=== PATIENT | female | born 1985 | race Hispanic/Latino ===

== ENCOUNTER → 2017-09-15 16:05 | Outpatient (CLI) | payer MEDICAID, SELFPAY ==
[2017-09-21 13:04] LABS: HPV Reflexed? NOT INDICATED
== END ==
PROVIDERS: Family Provider Family Medicine; PCP Family Medicine; Visit Provider Obstetrics & Gynecology
DX: Z12.4 Encounter for screening for malignant neoplasm of cervix (principal)
CPT/HCPCS: 88175; G0145

== ENCOUNTER → 2017-12-26 09:04 | Outpatient (CLI) | payer MEDICAID, SELFPAY ==
[2017-12-26 09:24] LABS: Absolute Lymphocyte Count 2.47 X10^3/ul (0.83-4.51); Absolute Neutrophil Count 3.5 X10^3/uL (2.0-7.7); Basophil# 0.02 X10^3/uL; Basophil% 0.3 % (0-1); Eosinophil# 0.25 X10^3/uL; Eosinophils% 3.8 % (0-5); Hematocrit 37.8 % (37-47); Lymphocyte # 2.47 X10^3/ul (4.0); Lymphocyte % 37.3 % (19-41); Mean Corp Hgb Conc 31.7 g/gl (32-36); Mean Corpuscular Hgb 26.6 pg (27.0-32.0); Mean Corpuscular Volume 83.8 fL (81-99); Mean Platelet Vol. 9.8 fl (6.2-12.0); Monocyte# 0.43 X10^3/uL; Monocyte% 6.5 % (0-10); Neutrophil # 3.45 X10^3/uL (2.7-7.7); Neutrophil % 52.1 % (47-70); Platelet Count 272 K/mm3 (150-450); RBC Distribution Width CV 14.3 % (11.6-14.6); RBC Distribution Width SD 43.7 fl (35.1-43.9); Red Blood Count 4.51 M/mm3 (4.2-5.4); White Blood Count 6.6 K/mm3 (4.4-11.0)
[2017-12-26 09:27] LABS: Internal QC Validated? YES +Cl - CLEAR BKGD; POSITIVE COUNT NO; POSITIVE DIFFERENTIAL NO; POSITIVE MORPHOLOGY NO; Pregnancy, Urine Negative Negative
[2017-12-26 09:37] LABS: Anion Gap 5 (5-15); BUN 9 mg/dL (7-18); BUN/Creat Ratio 16.4 RATIO (10-20); Calcium,Total 8.2 mg/dL (8.5-10.1); Chloride 105 mmol/L (98-107); Creatinine, Serum 0.55 mg/dL (0.55-1.02); EST Glomerular Filtration Rate 137 mL/min (>60); Est Glom Filt Rate - Afr Amer 166 mL/min (>60); Glucose 82 mg/dL (74-106); Potassium 3.8 mmol/L (3.5-5.1); Sodium Level 139 mmol/L (136-145)
[2017-12-26 17:12] VITALS: BP 109/68; BP 117/65; BP 125/74
--- NOTE | 2017-12-26 17:12 | TILTTABLE_ITS ---
- Staff Staff: Bushra Thompson, - - Lida Quiñonez - Summary Pre Test Resting HR: 83 - Alert and oriented: Warm and dry Pre Test Resting BP: 117/65 - Alert and oriented: Warm and dry Minimum Test HR: 84 - Alert and oriented: Warm and dry Maximum Test HR: 104 - Alert and oriented: Warm and dry Minimum Test BP: 109/68 - Alert and oriented: Warm and dry Maximum Test BP: 125/74 - Alert and oriented: Warm and dry Reason for Test Termination: Reached Maximum Test Time Physician Tilt Table Report - Patient's Physicians Primary Care Physician: Steffany Garner [employer] Tm1 Developer: Stas Bernard Indications/Diagnosis: Dizziness/lightheadedness Syncope Procedure Comments: Patient was brought to the tilt table laboratory and laid supine on the tilt table. The patient was alert and oriented and warm and dry. The baseline heart rate was 83 bpm with a baseline blood pressure of 117/65 mmHg. The cardiac rhythm was normal sinus rhythm. The patient was placed in the 70? upright tilt table position for approximately 30 minutes. The patient remained alert and oriented and warm and dry. The minimal heart rate was 84 bpm with a minimal blood pressure of 109/68 mmHg and a maximal heart rate of 104 bpm with a maximal blood pressure 125/74 mmHg. The cardiac rhythm remained sinus rhythm. The patient did not lose consciousness. The patient complained of a variety of symptoms including mild headache, a little dizzy, cold in the right shoulder, feels like the table is moving, with subsequent resolution of symptoms after being returned to the supine position. The patient was returned to the supine position. The patient remained alert and oriented and warm and dry. The concluding heart rate was 99 bpm with a concluding blood pressure 119/75 mmHg. The cardiac rhythm remained sinus rhythm. The patient was taking oral intake well. Summary: 70? upright tilt table study considered negative for reproducible vasovagal/ neurocardiogenic syncope.
== END ==
PROVIDERS: Family Provider Family Medicine; PCP Family Medicine; Visit Provider Psychiatry & Neurology Neurology
DX: R55 Syncope and collapse (principal)
CPT/HCPCS: 36415; 80048; 81025; 85025; 93660; J7030; A4216

== ENCOUNTER → 2018-08-09 17:17 | Outpatient (CLI) | payer MEDICAID, SELFPAY | PROVIDERS: Family Provider Family Medicine; PCP Family Medicine; Referring Provider Obstetrics & Gynecology; Visit Provider Obstetrics & Gynecology | DX: N39.0 Urinary tract infection, site not specified (principal) | CPT/HCPCS: 87086; 87088 ==

== ENCOUNTER → 2018-09-18 17:50 | Outpatient (CLI) | payer MEDICAID, SELFPAY ==
[2017-07-25 11:48] VITALS: BMI 39.2
[2018-09-24 12:11] LABS: HPV Reflexed? NOT INDICATED
== END ==
PROVIDERS: Family Provider Family Medicine; PCP Family Medicine; Referring Provider Obstetrics & Gynecology; Visit Provider Obstetrics & Gynecology
DX: Z12.4 Encounter for screening for malignant neoplasm of cervix (principal)
CPT/HCPCS: 88175; G0145

== ENCOUNTER → 2018-10-31 15:33 | Outpatient (CLI) | payer MEDICAID, SELFPAY ==
[2018-10-29 14:01] VITALS: BMI 39.2
--- NOTE | 2018-10-31 15:40 | US_ITS ---
STUDY: ULTRASOUND BREAST - LEFT REASON FOR EXAM: Female, 32 years old. Palpable lump left breast. The patient is presently nursing. TECHNIQUE: Axial and longitudinal images of the LEFT breast were performed with a high resolution ultrasound transducer. COMPARISON: None. FINDINGS: LEFT Breast: There is a 1.1 cm x 1.2 cm x 0.7 cm cyst at the 9:00 position of the breast adjacent to the nipple. US/Breast Limited Unilateral IMPRESSION: The palpable abnormality corresponds to a 1.1 cm x 1.2 cm x 0.7 cm cyst at the 9:00 position of the breast adjacent to the nipple. ASSESSMENT CATEGORY: BIRADS Category 2: Benign. A letter regarding these results will be sent to the patient by the facility within 30 days. Electronically Signed: Tim Conteh, at 8:01 EDT , Service support ,
== END ==
PROVIDERS: Family Provider Family Medicine; PCP Nurse Practitioner Family; Referring Provider Surgery; Visit Provider Surgery
DX: N63.20 Unspecified lump in the left breast, unspecified quadrant (principal)
CPT/HCPCS: 76642

== ENCOUNTER → 2018-11-05 16:53 | Outpatient (CLI) | payer MEDICAID, SELFPAY ==
--- NOTE | 2018-11-05 14:20 | BRBX_PTH ---
PATIENT: TOSHIA MELVIN LOC: [facility] #:[id number] AGE/SX: 39/F ROOM: RE11/05/[address]: Dr. Yann Keen MD : 1985 BED: DIS: SPEC #: [id number] RECD: 11/05/18 16:53 STATUS: MARY ANNE BRANDEN #: [id number] TONY: 11/05/18 14:[address]: Yann Keen DEPT: SURGICAL PATHOLOGY RECD BY: Xiomara Arzola Tissues: Left breast, NOS Procedures: Surgery Specimen Level IV HEADER OPERATION: Left breast biopsy PRE-OP DIAGNOSIS: Lump left breast TISSUE SUBMITTED: Left breast tissue MICROSCOPIC DIAGNOSIS Left breast, core biopsy: Benign breast tissue with lactational changes. Negative for atypia or malignancy. SJ:hilda 11/07/18 COMMENT Correlation with clinical findings and appropriate follow up are necessary. MICROSCOPIC DESCRIPTION Slides are reviewed. GROSS DESCRIPTION Received in fixative is one container labeled with the patient's name and designated left breast. The specimen consists of multiple minute fragments of ruffin tissue that in aggregate measure 0.2 x <0.1 x <0.1 cm. The specimen is totally submitted in one cassette. / AM:hilda 11/06/18 TC:5 CPT: 81094
[2018-11-05 14:50] VITALS: BMI 39.2
== END ==
PROVIDERS: Referring Provider Surgery; Visit Provider Surgery
DX: N63.20 Unspecified lump in the left breast, unspecified quadrant (principal)
CPT/HCPCS: 88305

== ENCOUNTER 2020-02-01 17:38 | Emergency (ER) | payer MEDICAID, SELFPAY ==
[2018-11-05 14:50] VITALS: BMI 39.2
[2020-02-01 17:41] VITALS: BP 149/82; PULSE 105; RESP 20; TEMP 37; O2SAT 97; BMI 36.8
--- NOTE | 2020-02-01 18:26 | EKG12_ITS ---
Test Reason : CP Blood Pressure : / mmHG Vent. Rate : 102 BPM Atrial Rate : 102 BPM P-R Int : 180 ms QRS Dur : 090 ms QT Int : 340 ms P-R-T Axes : 052 019 057 degrees QTc Int : 443 ms Sinus tachycardia Nonspecific T wave abnormality Abnormal ECG Confirmed by LULY FUENTES, BENJAMIN ([id number]), photographic editor CHANDU WOODWARD ([id number]) on 02/04/2020 9:28:30 AM Referred By: DENIZ Confirmed By:BENJAMIN MAURICIO MD
--- NOTE | 2020-02-01 18:27 | ED.DCSUM_ITS ---
History of Present Illness Chief Complaint: Chest Pain Informant: Patient Onset: Today Quality: Pressure Location: Left Chest Worsened By: Breathing Relieved By: Nothing Associated Symptoms: Nausea, Cough Narrative: Patient is a 34-year-old female presenting with chest pressure. She states is on the left side of her chest. It started about 30 minutes prior to arrival to the ER. Patient states she was driving home from the park which is been with her children. She states when she takes deep breath because of the pain to be worse. She also feels like she is not taking good breaths. She states she sometimes coughs because of the discomfort in her chest. She not have cough prior to this episode. She has some associated nausea. She denies any radiation of the pain. She states is never had anything like this before. She denies any history of DVT or PE. She has any swelling of her legs. She is not concerned for as she has ParaGard IUD in. She denies any family history of cardiac disease. She denies any fever or chills. No other complaints at this time. Prior Similar Symptoms: No PE Risk Factors: Negative for: Recent Travel/Surgery, Recenet Immobilization, Prior DVT or PE, Cancer, OCP + Smoking + >/=35 Past Medical History - Allergies and Home Meds Allergies/Adverse Reactions: Allergies No Known Allergies Allergy (Verified 11/05/18 14:56) Primary Care Physician: Radha Green NP-C [Primary Care Provider] - Past Medical History: None Surgical History: noncontributory Lives: With Family Smoking Status: Never smoker Review of Systems General: Denies: Chills, Fever, Sweats Eyes: Denies: Visual changes - bilaterally, Diplopia ENT: Denies: Rhinorrhea, Sore throat Cardiovascular: Reports: Chest pain. Denies: Palpitations Respiratory: Reports: Dyspnea, Cough. Denies: Dyspnea on exertion Gastrointestinal: Denies: Abdominal pain, Nausea, Vomiting, Diarrhea, Melena, Hematochezia Genitourinary: Denies: Dysuria, Hematuria, Frequency Musculoskeletal: Denies: Back pain, Extremity Pain Skin: Denies: Rash, Wounds Neurological: Denies: Headache, Weakness, Numbness Physical Exam Vital Signs/Narrative: Vital Signs Temp Pulse Resp BP Pulse Ox 02/01/20 17:41 98.6 F 105 H 20 H 149/82 H 97 Inital Vital Signs reviewed: Yes General: Well nourished, Well developed, No Acute Distress Head: Normocephalic, Atraumatic Eyes: Perrl, EOMI ENT: Moist mucous membranes, No rhinorrhea Neck: Supple, Nontender Cardiovascular: Regular rate, Regular rhythm, No murmurs Respiratory: No distress, CTA bilaterally, Chest nontender. Negative for: Wheezing, Chest tenderness Abdomen: Soft, Nontender, Nondistended, Normal bowel sounds Back: Nontender, Normal Inspection Extremities: Nontender, No edema Skin: Normal color, No rash Neurological: Alert, Oriented x3, Cranial nerves II-XII grossly intact, Normal Strength, Normal Sensation Psychological: Normal affect, Normal Mood Diagnostic/Tx/Re-eval Clinical Impression(s) from Imaging Studies Chest CTA 02/01/20 19:08 IMPRESSION: 1. No evidence of aortic dissection or central pulmonary embolism. Suboptimal evaluation of the peripheral branches. 2. No evidence of infiltrates or pleural effusions. Electronically Signed: Isma Gee MD at 19:51 EDT Tel , Service support , Laboratory Data 02/01/20 02/01/20 02/01/20 18:00 18:00 18:00 WBC 8.9 RBC 4.80 Hgb 10.3 L Hct 35.0 L MCV 72.9 L MCH 21.5 L MCHC 29.4 L RDW Std Deviation 43.8 RDW Coeff of Abhishek 16.9 H Plt Count 418 MPV 10.5 Immature Gran % (Auto) 0.300 Neut % (Auto) 59.6 Lymph % (Auto) 33.5 [place] % (Auto) 5.1 Eos % (Auto) 1.1 Baso % (Auto) 0.4 Absolute Neuts (auto) 5.3 Absolute Lymphs (auto) 2.98 Nucleated RBC % 0 PT 12.0 INR 0.9 D-Dimer Quant (PE/DVT) 0.65 H* Sodium 138 Potassium 3.3 L Chloride 108 H Carbon Dioxide 25.0 Anion Gap 5 BUN 12 Creatinine 0.68 Estim Creat Clear Calc 118.70 Est GFR (MDRD) Af Amer 127 Est GFR (MDRD) Non-Af 105 BUN/Creatinine Ratio 17.6 Glucose 149 H Calcium 8.5 Troponin I < 0.015 - Rhythm Strip Rhythm Strip: Sinus Tach Rate: 102 Ectopy: None - EKG Initial EKG Interpretation: Sinus Tachycardia, - - Tachycardia at a rate of [address] segments Normal intervals Treatment: Aspirin, Toradol IV RUTH Risk: No Positive RUTH Elements Score: 0 - Medical Decision Making Patient evaluated for chest pressure in her left upper chest wall. Patient is initially tachycardic so she cannot be ruled out for PE but she is otherwise low rest. D-dimer is mildly elevated so CTA is obtained. This is negative for any acute process. Patient does not have any acute EKG abnormalities and has a normal troponin. Lab work is otherwise unremarkable. Patient is low risk for ACS. Patient be discharged home to follow-up with her primary care doctor. Just prior to discharge patient does comment that she notices when she is laying down and resting at night her heart rate gets low on her smart watch. She is not particularly symptomatic but tired when this happens. Patient is counseled that she should follow-up with her primary care doctor for all of these complaints. I do think she stable for outpatient follow-up at this time. ED Disposition - Plan for ED Patient: Disposition: Home or Assisted Living Diagnosis: Chest pain of uncertain etiology Instructions: ED Chest Pain Atypical Unkn Cause Referrals: Radha Green NP-C [Primary Care Provider] - Additional Instructions: Your work-up today was normal. You are not having a heart attack you do not have any blood clots in your lungs or signs of pneumonia. The exact cause your symptoms is not clear. I think you are safe to follow-up with your primary care doctor. Please call them on Monday to schedule a follow-up appointment to discuss this episode of chest pain as well as your heart rate being low at night. Alternate Tylenol and ibuprofen as needed for the pain.
[2020-02-01 18:29] VITALS: BP 148/78; PULSE 98; RESP 16; O2SAT 99
[2020-02-01 18:41] LABS: Absolute Lymphocyte Count 2.98 X10^3/uL (0.83-4.51); Absolute Neutrophil Count 5.3 X10^3/uL (2.0-7.7); Basophil# 0.04 X10^3/uL; Basophil% 0.4 % (0-1); Eosinophils% 1.1 % (0-5); Hemoglobin 10.3 g/dL (12.0-15.0); Lymphocyte # 2.98 X10^3/ul (4.0); Lymphocyte % 33.5 % (19-41); Mean Corp Hgb Conc 29.4 g/dL (32-36); Mean Corpuscular Hgb 21.5 pg (27.0-32.0); Mean Corpuscular Volume 72.9 fL (81-99); Mean Platelet Vol. 10.5 fl (6.2-12.0); Monocyte# 0.45 X10^3/uL; Monocyte% 5.1 % (0-10); NRBC Flagged by Analyzer 0 % (0-5); Neutrophil % 59.6 % (47-70); Platelet Count 418 K/mm3 (150-450); RBC Distribution Width CV 16.9 % (11.6-14.6); RBC Distribution Width SD 43.8 fl (35.1-43.9); White Blood Count 8.9 K/mm3 (4.4-11.0)
[2020-02-01] MEDS: Aspirin 81 MG TAB.CHEW 324 MG PO (18:49)
[2020-02-01] MEDS: 0.9% Normal Saline 1,000 ML 1000 ML IV (18:50)
[2020-02-01 18:53] LABS: International Normalized Ratio 0.9
[2020-02-01 18:57] LABS: D-Dimer Quantitative (DVT/PE) 0.65 FEU/ug/m (0.27-0.49)
[2020-02-01 19:01] LABS: Anion Gap 5 (5-15); BUN 12 mg/dL (7-18); BUN/Creat Ratio 17.6 RATIO (10-20); Calcium,Total 8.5 mg/dL (8.5-10.1); Chloride 108 mmol/L (98-107); Creatinine, Serum 0.68 mg/dL (0.55-1.02); EST Glomerular Filtration Rate 105 mL/min (>60); Est Glom Filt Rate - Afr Amer 127 mL/min (>60); Glucose 149 mg/dL (74-106); Potassium 3.3 mmol/L (3.5-5.1); Sodium Level 138 mmol/L (136-145)
--- NOTE | 2020-02-01 19:08 | CT_ITS ---
STUDY: CTA CHEST REASON FOR EXAM: Female, 34 years old. Right-sided chest pain. RADIATION DOSAGE (If Supplied By Facility): CTDIvol = ( 12.69 ) mGy, DLP = ( 460.14 ) mGycm TECHNIQUE: The examination was performed with the intravenous administration of IV 100mL Isovue-370. Post-processing of the angiographic images was performed, with multiplanar reformation and 3D reconstruction. Individualized dose optimization techniques were used for this CT. COMPARISON: None. FINDINGS: Normal enhancement of the main pulmonary artery and right and left pulmonary arteries. There is limited enhancement of the bilateral peripheral pulmonary arteries. There is no demonstrated central pulmonary embolism. Normal thoracic aorta and visualized great vessels. There is no demonstrated aortic dissection. Normal heart and pericardium. Normal mediastinum. Normal hilar regions. Normal visualized trachea and bronchi. The lungs are well expanded. There are no pulmonary infiltrates. There are no pleural effusions. Normal chest wall structures. The osseous structures demonstrate no acute process. There are calcifications in the midthoracic disc spaces. Normal visualized upper abdomen. CT/CTA Chest W/WO Contrast IMPRESSION: 1. No evidence of aortic dissection or central pulmonary embolism. Suboptimal evaluation of the peripheral branches. 2. No evidence of infiltrates or pleural effusions. Electronically Signed: Isma Gee MD at 19:51 EDT Tel , Service support ,
== END 2020-02-01 20:58 | disposition home or self-care (01) ==
PROVIDERS: Emergency Provider Emergency Medicine; PCP Nurse Practitioner Family
DX: R07.9 Chest pain, unspecified (principal)
CPT/HCPCS: 71275; 80048; 84484; 85025; 85379; 85610; 93005; 96360; 96361; 99285; J7030; Q9967; A4216

== ENCOUNTER → 2020-05-19 | Outpatient (CLI) | payer MEDICAID, SELFPAY ==
[2020-05-25 16:13] LABS: HPV Reflexed? NOT INDICATED
== END | disposition home or self-care (01) ==
PROVIDERS: PCP Nurse Practitioner Family; Visit Provider Obstetrics & Gynecology
DX: Z12.4 Encounter for screening for malignant neoplasm of cervix (principal)
CPT/HCPCS: 88175; G0145

== ENCOUNTER 2020-06-23 23:01 | Emergency (ER) | payer MEDICAID, SELFPAY ==
[2020-06-23 23:02] VITALS: BP 148/96; PULSE 89; RESP 16; TEMP 36.4; O2SAT 100; BMI 34.0
--- NOTE | 2020-06-23 23:43 | ED.DCSUM_ITS ---
History of Present Illness Chief Complaint: Abd Pain Informant: Patient Narrative: Stated she started having some epigastric burning after having emesis 3 days ago. Worse today. She has been using 2 doses of Maalox per day. She also used Tylenol. She also used her proton pump inhibitor. She takes this daily for the last 3 months. She had endoscopy 2 weeks ago but does not know the results. She was told she did not have a stomach ulcer however. She has a history of chronic gastric reflux. She stated she also had an ultrasound of her gallbladder that shows gallbladder sludge recently. She has had some chest pain work-ups in the past that have been negative recently as well. She denies any nausea or vomiting or diarrhea. She describes a burning in her epigastric region. She also feels in her back. No history of pancreatitis. She feels it straight through to her back. Current severity is mild in nature. No shortness of breath. No pain in her chest at this time. - Past Medical History (1) Breast mass, left Status: Acute Past Medical History - Allergies and Home Meds Allergies/Adverse Reactions: Allergies naproxen [From Naprosyn] Allergy (Verified 06/23/20 23:03) Upset Stomach Primary Care Physician: Radha Green NP, LEAD MAINTENANCE TECHNICIAN-C [Primary Care Provider] - Prior records reviewed: Yes Past Medical History: - - Problem list, GERD Surgical History: noncontributory Lives: With Family Smoking Status: Never smoker Alcohol: None Drugs: None Review of Systems General: Denies: Chills, Fever, Sweats Eyes: Denies: Visual changes - bilaterally, Diplopia ENT: Denies: Rhinorrhea, Sore throat Cardiovascular: Denies: Chest pain, Palpitations Respiratory: Denies: Dyspnea, Cough, Dyspnea on exertion Gastrointestinal: Reports: Abdominal pain. Denies: Nausea, Vomiting, Diarrhea, Melena, Hematochezia Genitourinary: Denies: Dysuria, Hematuria, Frequency Musculoskeletal: Reports: Back pain. Denies: Extremity Pain Skin: Denies: Rash, Wounds Neurological: Denies: Headache, Weakness, Numbness Physical Exam Vital Signs/Narrative: Vital Signs Temp Pulse Resp BP Pulse Ox 06/23/20 23:02 97.6 F L 89 16 148/96 H 100 General: Well nourished, Well developed, No Acute Distress Head: Normocephalic, Atraumatic Eyes: Perrl, EOMI ENT: Moist mucous membranes, No rhinorrhea Neck: Supple, Nontender Cardiovascular: Regular rate, Regular rhythm, No murmurs Respiratory: No distress, CTA bilaterally, Chest nontender Abdomen: Soft, Nondistended, Normal bowel sounds, Tender - tender epigastric pinpoint without swelling guarding or rebound.. Negative for: Guarding, Rebound tenderness Back: Nontender, Normal Inspection Extremities: Nontender, No edema Skin: Normal color, No rash Neurological: Alert, Oriented x3, Cranial nerves II-XII grossly intact, Normal Strength, Normal Sensation Psychological: Normal affect, Normal Mood Diagnostic/Tx/Re-eval - Medical Decision Making Lab work obtained. Patient given GI cocktail and IV fluids. She felt much better after treatment. Lab work shows normal CBC other than chronic anemia at 9.1. Follow-up with her doctor discuss getting placed on iron for anemia. Electrolytes liver function test lipase normal. Time I do not feel she has a pancreatitis or gallbladder stone causing her symptoms. This appears to be more gastroesophageal reflux related. She will continue her home management and follow-up as an outpatient ED Disposition - Plan for ED Patient: Disposition: Home or Assisted Living Diagnosis: GERD (gastroesophageal reflux disease) Instructions: ED GERD (Adult) Referrals: Radha Green NP, LEAD MAINTENANCE TECHNICIAN-C [Primary Care Provider] -
[2020-06-23] MEDS: Mag Hydrox/Al Hydrox/Simeth 30 ML UDC PO (23:53)
[2020-06-23] MEDS: 0.9% Normal Saline 1,000 ML 1000 ML IV (23:55)
[2020-06-24 00:49] LABS: Absolute Neutrophil Count 4.8 X10^3/uL (2.0-7.7); Basophil# 0.04 X10^3/uL; Basophil% 0.5 % (0-1); Eosinophil# 0.26 X10^3/uL; Hematocrit 30.2 % (37-47); Hemoglobin 9.1 g/dL (12.0-15.0); Lymphocyte % 35.7 % (19-41); Mean Corp Hgb Conc 30.1 g/dL (32-36); Mean Corpuscular Hgb 21.8 pg (27.0-32.0); Mean Corpuscular Volume 72.4 fL (81-99); Mean Platelet Vol. 10.6 fl (6.2-12.0); Monocyte# 0.47 X10^3/uL; Monocyte% 5.4 % (0-10); NRBC Flagged by Analyzer 0 % (0-5); Neutrophil # 4.79 X10^3/uL (2.7-7.7); Neutrophil % 55.1 % (47-70); Platelet Count 349 K/mm3 (150-450); RBC Distribution Width CV 17.6 % (11.6-14.6); RBC Distribution Width SD 45.4 fl (35.1-43.9); Red Blood Count 4.17 M/mm3 (4.2-5.4); White Blood Count 8.7 K/mm3 (4.4-11.0)
[2020-06-24 00:55] LABS: Internal QC Validated? YES +Cl - CLEAR BKGD; Pregnancy, Serum, hCG Quali. NEGATIVE Negative
[2020-06-24 01:02] LABS: AST(SGOT) 7 U/L (15-37); Alanine Aminotransfer ALT/SGPT 19 U/L (13-56); Albumin, Serum 3.5 g/dL (3.2-5.0); Alkaline Phosphatase 75 U/L (45-117); Anion Gap 5 (5-15); BUN 11 mg/dL (7-18); BUN/Creat Ratio 19.2 RATIO (10-20); Calcium,Total 8.6 mg/dL (8.5-10.1); Chloride 107 mmol/L (98-107); Creatinine, Serum 0.57 mg/dL (0.55-1.02); EST Glomerular Filtration Rate 128 mL/min (>60); Est Glom Filt Rate - Afr Amer 155 mL/min (>60); Estimated Creatinine Clearance 141.61 ml/min; Globulin 3.4 g/dL (2.2-4.2); Glucose 87 mg/dL (74-106); Lipase 120 U/L (73-393); Potassium 3.6 mmol/L (3.5-5.1); Protein, Total 6.9 g/dL (6.4-8.2); Sodium Level 141 mmol/L (136-145)
[2020-06-24 01:27] VITALS: BP 135/76; PULSE 80; RESP 15; O2SAT 97
== END 2020-06-24 01:27 | disposition home or self-care (01) ==
PROVIDERS: Emergency Provider Emergency Medicine; PCP Nurse Practitioner Family
DX: K21.9 Gastro-esophageal reflux disease without esophagitis (principal); D64.9 Anemia, unspecified
CPT/HCPCS: 36415; 80053; 83690; 84703; 85025; 96360; 99284; J7030; A4216

== ENCOUNTER → 2020-06-29 | Outpatient (CLI) | payer MEDICAID, SELFPAY ==
[2020-06-23 23:02] VITALS: BMI 34.0
[2020-07-01 03:07] LABS: Chlamydia By Nucleic Acid AMP Negative (Negative)
[2020-07-01 06:30] LABS: Gonococcus By Nucleic Acid AMP Negative (Negative)
== END | disposition home or self-care (01) ==
LOC: LABSPEC 13:40
PROVIDERS: PCP Nurse Practitioner Family; Visit Provider Obstetrics & Gynecology
DX: Z11.3 Encounter for screening for infections with a predominantly sexual mode of transmission (principal)
CPT/HCPCS: 87491; 87591

== ENCOUNTER 2020-08-27 16:19 | Emergency (ER) | payer MEDICAID, SELFPAY ==
[2020-08-27 16:20] VITALS: BP 152/93; PULSE 107; RESP 16; TEMP 36.8; O2SAT 98; BMI 34.0
--- NOTE | 2020-08-27 17:49 | EKG12_ITS ---
Test Reason : NAUSEA AND V Blood Pressure : / mmHG Vent. Rate : 102 BPM Atrial Rate : 102 BPM P-R Int : 166 ms QRS Dur : 084 ms QT Int : 336 ms P-R-T Axes : 042 024 040 degrees QTc Int : 437 ms Poor data quality, interpretation may be adversely affected Sinus tachycardia Otherwise normal ECG Confirmed by ISADORA FUENTES, EDITH ([id number]), associate entertainment editor CHANDU WOODWARD ([id number]) on 08/31/2020 12:31:49 P M Referred By: SEEMA Confirmed By:BRODIE MUIR MD
--- NOTE | 2020-08-27 17:55 | ED.DCSUM_ITS ---
History of Present Illness Chief Complaint: Nausea/Vomiting Informant: Patient Narrative: 34-year-old female presenting with multiple symptoms. She states that she has been having ringing in her ears, left-sided headache, tingling in her hands and feet since starting up urinate 3 days ago. Patient states that she has migraines and she is scheduled for an MRI next month. Patient also states that she has been having abdominal pain and points to the right upper quadrant. She denies any is worse with food. Its intermittent and dull pain. She is not vomiting. She denies urinary complaints. She not had fever, chills. No constipation or diarrhea. Past Medical History - Allergies and Home Meds Allergies/Adverse Reactions: Allergies naproxen [From Naprosyn] Allergy (Verified 08/27/20 16:20) Upset Stomach Primary Care Physician: Radha Green RESOURCE ROOM SPECIAL EDUCATION TEACHER, RESOURCE ROOM SPECIAL EDUCATION TEACHER-C [Primary Care Provider] - Past Medical History: - - Migraine headaches, rapid heart rate, GERD Surgical History: noncontributory Lives: Spouse/ Significant Other Smoking Status: Never smoker Alcohol: None Drugs: None Review of Systems General: Denies: Chills, Fever Eyes: Denies: Visual changes - bilaterally, Diplopia ENT: Reports: - - Intermittent tinnitus Cardiovascular: Denies: Chest pain, Palpitations Respiratory: Denies: Dyspnea, Cough Gastrointestinal: Reports: Abdominal pain, Nausea. Denies: Diarrhea, Constipation Genitourinary: Denies: Dysuria, Hematuria Musculoskeletal: Denies: Myalgias, Arthralgias Skin: Denies: Rash, Abscess Neurological: Reports: Headache - Left-sided, Parasthesia - Lateral hands and feet Psych: Denies: Depression, Anxiety Physical Exam Vital Signs/Narrative: Vital Signs Temp Pulse Resp BP Pulse Ox 08/27/20 16:20 98.2 F 107 H 16 152/93 H 98 Inital Vital Signs reviewed: Yes Head: Normocephalic, Atraumatic Eyes: Perrl, EOMI ENT: Moist mucous membranes, No rhinorrhea Cardiovascular: Regular rate, Regular rhythm Respiratory: No distress, CTA bilaterally Abdomen: Soft, Nondistended, Tender - Tenderness in the epigastrium and right upper quadrant. Abdomen nonperitoneal. Extremities: Nontender, No edema Skin: Normal color, No rash Neurological: Alert, Oriented x3, Cranial nerves II-XII grossly intact Psychological: Normal affect, Normal Mood Diagnostic/Tx/Re-eval Clinical Impression(s) from Imaging Studies Abdomen Ultrasound 08/27/20 17:55 IMPRESSION: Normal right upper quadrant ultrasound examination. Electronically Signed: Samina Dugan MD at 20:27 EST Tel , Service support , Brain CT 08/27/20 19:31 IMPRESSION: Normal unenhanced CT scan of the brain. Electronically Signed: Samina Dugan MD at 19:52 EST Tel , Service support , Laboratory Data 08/27/20 08/27/20 08/27/20 18:27 18:27 18:27 WBC 11.7 H RBC 5.13 Hgb 12.5 Hct 39.7 MCV 77.4 L MCH 24.4 L MCHC 31.5 L RDW Std Deviation 56.2 H RDW Coeff of Abhishek 20.3 H Plt Count 376 MPV 10.4 Immature Gran % (Auto) 0.300 Neut % (Auto) 81.3 H Lymph % (Auto) 14.4 L Day % (Auto) 3.5 Eos % (Auto) 0.2 Baso % (Auto) 0.3 Absolute Neuts (auto) 9.5 H Absolute Lymphs (auto) 1.69 Nucleated RBC % 0 Platelet Estimate ADEQUATE RBC Morphology N CHROM Anisocytosis 1+ Microcytosis 1+ Ovalocytes RARE Sodium 138 Potassium 3.3 L Chloride 107 Carbon Dioxide 26.0 Anion Gap 5 BUN 11 Creatinine 0.79 Estim Creat Clear Calc 102.17 Est GFR (MDRD) Af Amer 108 Est GFR (MDRD) Non-Af 89 BUN/Creatinine Ratio 14.0 Glucose 114 H Calcium 8.8 Total Bilirubin 0.20 AST 9 L ALT 17 Alkaline Phosphatase 82 Troponin I < 0.015 Total Protein 7.9 Albumin 3.8 Globulin 4.1 Albumin/Globulin Ratio 0.9 Lipase 126 Serum , Qual NEGATIVE - Rhythm Strip Rhythm Strip: Sinus Rhythm Rate: 102 - EKG Initial EKG Interpretation: No Acute Injury Pattern, Sinus Tachycardia - Medical Decision Making Patient presenting with multiple symptoms of paresthesia in the bilateral hands and feet, nausea, abdominal pain in the right upper quadrant. She states that her symptoms really began after starting taking topiramate. Patient had EKG interpreted by myself which shows a sinus rhythm without dysrhythmia or ischemic change. Opponent is negative. CT of the brain which showed no acute process. Patient had a normal right upper quadrant ultrasound. Lab work was within normal limits exception of a slight leukocytosis of just over 11,000 and her potassium was slightly low at 3.3 however I did not replace this orally due to her nausea. I think that her symptoms are likely due to medication side effect and she was counseled to follow-up with her doctor that prescribes it to see about changing it. I do not believe that her symptoms represent strokelike symptoms. She was given Zofran for home. She was given return precautions. Impression: 1. Abdominal pain 2. Nausea 3. Paresthesias bilateral hands and feet ED Disposition - Plan for ED Patient: Disposition: Home or Assisted Living Instructions: ED Vomiting (Adult) Prescriptions: Ondansetron [Zofran Odt] 4 mg PO Q8H PRN PRN #10 tab PRN Reason: Nausea Transmission Status: Received by [id number] Referrals: Radha Green NP, RESOURCE ROOM SPECIAL EDUCATION TEACHER-C [Primary Care Provider] - Additional Instructions: I think you are probably having side effects to your new medication. You should discuss this with the physician who prescribes this to determine if you can change your medication or discontinue.
--- NOTE | 2020-08-27 17:55 | US_ITS ---
STUDY: ABDOMINAL ULTRASOUND - RIGHT UPPER QUADRANT REASON FOR VISIT: Female, 34 years old RUQ PAIN TECHNIQUE: Ultrasound evaluation of the right upper quadrant was performed with real-time and static bates-scale imaging. TECHNICAL QUALITY: Adequate. COMPARISON: None. FINDINGS: Liver: The liver measures 14.9 cm. There is normal echogenicity of the liver. The bile ducts are within normal limits. There is hepatic color flow. The direction of portal flow is hepatopetal. There is no demonstrated mass lesion. Gallbladder: Normal distended gallbladder. The gallbladder wall measures 3 mm. There is a negative sonographic Harvey''s sign. There is no pericholecystic fluid. There are no gallstones. Common Bile Duct (C.B.D.): The common bile duct measures 4 mm. Pancreas: Normal size of the head, body and tail of the pancreas. There is normal echogenicity of the pancreas. There is no demonstrated pancreatic mass or cyst. Right Kidney: Normal size of the right kidney. The right kidney measures 11.8 x 5 x 6.2 cm. Normal renal cortex. The right cortex measures 1.7 cm. There is no demonstrated renal mass or cyst. There is no right hydronephrosis. US/Abdomen Limited IMPRESSION: Normal right upper quadrant ultrasound examination. Electronically Signed: Samina Dugan MD at 20:27 EST Tel , Service support ,
[2020-08-27 18:42] LABS: Absolute Lymphocyte Count 1.69 X10^3/uL (0.83-4.51); Absolute Neutrophil Count 9.5 X10^3/uL (2.0-7.7); Basophil# 0.04 X10^3/uL; Basophil% 0.3 % (0-1); Eosinophil# 0.02 X10^3/uL; Eosinophils% 0.2 % (0-5); Hematocrit 39.7 % (37-47); Hemoglobin 12.5 g/dL (12.0-15.0); Lymphocyte # 1.69 X10^3/ul (4.0); Lymphocyte % 14.4 % (19-41); Mean Corp Hgb Conc 31.5 g/dL (32-36); Mean Corpuscular Hgb 24.4 pg (27.0-32.0); Mean Corpuscular Volume 77.4 fL (81-99); Mean Platelet Vol. 10.4 fl (6.2-12.0); Monocyte# 0.41 X10^3/uL; Monocyte% 3.5 % (0-10); NRBC Flagged by Analyzer 0 % (0-5); Neutrophil # 9.51 X10^3/uL (2.7-7.7); Neutrophil % 81.3 % (47-70); POSITIVE MORPHOLOGY YES; Platelet Count 376 K/mm3 (150-450); RBC Distribution Width CV 20.3 % (11.6-14.6); RBC Distribution Width SD 56.2 fl (35.1-43.9); Red Blood Count 5.13 M/mm3 (4.2-5.4); White Blood Count 11.7 K/mm3 (4.4-11.0)
[2020-08-27 18:55] LABS: Differential Indicated SCAN CRITERIA MET
[2020-08-27] MEDS: Ondansetron 4 MG/2 ML Vial IM (18:56)
[2020-08-27 18:59] LABS: Internal QC Validated? YES +Cl - CLEAR BKGD; Pregnancy, Serum, hCG Quali. NEGATIVE Negative
[2020-08-27 19:04] LABS: ALB/GLOB Ratio 0.9 RATIO (0.9-2.4); AST(SGOT) 9 U/L (15-37); Alanine Aminotransfer ALT/SGPT 17 U/L (13-56); Albumin, Serum 3.8 g/dL (3.2-5.0); Alkaline Phosphatase 82 U/L (45-117); Anion Gap 5 (5-15); BUN 11 mg/dL (7-18); Calcium,Total 8.8 mg/dL (8.5-10.1); Chloride 107 mmol/L (98-107); Creatinine, Serum 0.79 mg/dL (0.55-1.02); EST Glomerular Filtration Rate 89 mL/min (>60); Est Glom Filt Rate - Afr Amer 108 mL/min (>60); Estimated Creatinine Clearance 102.17 ml/min; Globulin 4.1 g/dL (2.2-4.2); Glucose 114 mg/dL (74-106); Lipase 126 U/L (73-393); Potassium 3.3 mmol/L (3.5-5.1); Protein, Total 7.9 g/dL (6.4-8.2); Sodium Level 138 mmol/L (136-145)
[2020-08-27 19:20] LABS: Platelet Estimate ADEQUATE (ADEQ)
[2020-08-27 19:21] LABS: Anisocytosis 1+; Microcytosis 1+; Ovalocyte RARE; Red Cell Morphology N CHROM NORMAL (NORM C&C)
--- NOTE | 2020-08-27 19:31 | CT_ITS ---
STUDY: CT BRAIN WITHOUT CONTRAST REASON FOR EXAM: Female, 34 years old. n/v with headache and ear ringing RADIATION DOSAGE (If Supplied By Facility): CTDIvol = ( 44.99 ) mGy, DLP = ( 762.36 ) mGycm TECHNIQUE: Transaxial CT imaging of the brain was performed without administration of intravenous contrast material. Individualized dose optimization techniques were used for this CT. COMPARISON: No relevant priors. FINDINGS: Normal soft tissue structures. Normal calvarium. Normal size ventricles and extra-axial spaces for the patient''s age. Normal white matter tracts of the cerebral hemispheres. Normal basal ganglia and thalami. Normal brainstem. Normal cerebellum. There is no intracranial hemorrhage. There are no findings of an acute ischemic infarction. Normal visualized paranasal sinuses. CT/Brain/Head without Contrast IMPRESSION: Normal unenhanced CT scan of the brain. Electronically Signed: Samina Dugan MD at 19:52 EST Tel , Service support ,
[2020-08-27] MEDS: Acetaminophen 500 MG Tablet 1000 MG PO (21:04)
== END 2020-08-27 21:11 | disposition home or self-care (01) ==
PROVIDERS: Emergency Provider Student in an Organized Health Care Education/Training Program; PCP Nurse Practitioner Family
DX: R11.2 Nausea with vomiting, unspecified (principal); R10.13 Epigastric pain; R10.11 Right upper quadrant pain; R20.2 Paresthesia of skin; K21.9 Gastro-esophageal reflux disease without esophagitis
CPT/HCPCS: 70450; 76705; 80053; 83690; 84484; 84703; 85025; 93005; 96360; 96372; 99284; J7040; J2405

== ENCOUNTER → 2021-01-21 13:26 | Outpatient (CLI) | payer MEDICAID, SELFPAY ==
--- NOTE | 2021-01-21 13:38 | MRI_ITS ---
STUDY: MRI BRAIN WITHOUT CONTRAST REASON FOR EXAM: Female, 35 years old. TENSION HEADACHES TECHNIQUE: Standardized multiplanar fat and water weighted pulse sequences were obtained. COMPARISON: CT 08/27/2020 FINDINGS: Normal size of the ventricles and extra-axial spaces for the patient''s age. Normal white matter tracts of the supratentorial brain. There is no evidence for recent intracranial ischemia or other cause of cytotoxic edema on diffusion weighted imaging (DWI). Normal T2* images of the brain without demonstrated susceptibility artifact. There is no demonstrated hemosiderin stain. Normal bilateral basal ganglia. Normal thalami. There is no extra-axial fluid accumulation. Normal flow voids within the major intracranial circulation suggesting patency by spin echo criteria. Normal sella turcica, pituitary gland, infundibular stalk, optic chiasm and hypothalamus. Normal tectal plate and pineal gland. Normal midbrain, claudia and medulla. Normal cerebellum. Normal basal cisterns. Normal bilateral temporal bones. Normal bilateral internal auditory canals. No demonstrated orbital abnormality, within the constraints of a routine brain study. Mucosal thickening of the maxillary sinuses consistent with chronic sinusitis. Air-fluid level in the left maxillary sinus consistent with acute sinusitis. Normal calvarium and skull base. Normal visualized soft tissue structures. Normal visualized upper cervical spine. MRI/Brain without Contrast IMPRESSION: Normal unenhanced MRI of the brain. Acute on chronic maxillary sinusitis. Electronically Signed: Hosea Coates MD at 14:47 EDT Tel , Service support ,
== END ==
PROVIDERS: PCP Nurse Practitioner Family
DX: G44.221 Chronic tension-type headache, intractable (principal)
CPT/HCPCS: 70551

== ENCOUNTER → 2021-01-27 13:42 | Outpatient (CLI) | payer MEDICAID, SELFPAY ==
[2021-01-27 15:05] LABS: Hematocrit 42.5 % (37-47); Hemoglobin 12.9 g/dL (12.0-15.0); Mean Corp Hgb Conc 30.4 g/dL (32-36); Mean Corpuscular Hgb 25.6 pg (27.0-32.0); Mean Corpuscular Volume 84.3 fL (81-99); Mean Platelet Vol. 10.4 fl (6.2-12.0); Platelet Count 389 K/mm3 (150-450); RBC Distribution Width SD 45.4 fl (35.1-43.9); Red Blood Count 5.04 M/mm3 (4.2-5.4); White Blood Count 9.1 K/mm3 (4.4-11.0)
== END ==
PROVIDERS: PCP Nurse Practitioner Family; Visit Provider Obstetrics & Gynecology
DX: N92.1 Excessive and frequent menstruation with irregular cycle (principal); N93.0 Postcoital and contact bleeding; N77.1 Vaginitis, vulvitis and vulvovaginitis in diseases classified elsewhere
CPT/HCPCS: 36415; 85027

== ENCOUNTER 2021-07-23 07:15 | Outpatient (CLI) | payer MEDICAID, SELFPAY ==
--- NOTE | 2021-07-23 07:17 | CT_ITS ---
STUDY: CT MAXILLOFACIAL SINUSES REASON FOR EXAM: Female, 35 years old. CHRONIC SINUSITIS RADIATION DOSAGE (If Supplied By Facility): CTDIvol = ( 3306 ) mGy, DLP = ( 842.11 ) mGycm TECHNIQUE: The patient was scanned in a multi detector CT scanner. High resolution axial imaging was performed without the administration of intravenous contrast material. Sagittal and coronal images were reconstructed. Individualized dose optimization techniques were used for this CT. COMPARISON: None. FINDINGS: FRONTAL SINUSES: Normal aeration, without mucosal inflammatory disease. ETHMOIDAL SINUSES: Mucosal thickening of multiple ethmoid air cells consistent with chronic sinusitis. MAXILLARY SINUSES: Mucosal thickening of the floor the right maxillary sinus consistent with chronic sinusitis. SPHENOIDAL SINUSES: Normal aeration, without mucosal inflammatory disease. There is patency of the bilateral maxillary infundibuli with normal uncinate processes, ethmoid bullae, and hiatus semilunaris. Normal bilateral middle turbinates. Normal bilateral inferior turbinates. Normal midline nasal septum. There is patency of the bilateral nasal airways. The visualized osseous structures are normal. The visualized bilateral orbital contents are normal. CT/Sinus/Facial Bone IMPRESSION: Mild chronic right maxillary and ethmoid sinusitis. Electronically Signed: Hosea Coates MD at 9:13 EST Tel , Service support ,
== END 2021-07-23 23:59 | disposition short-term general hospital (02) ==
LOC: CT 07:16
PROVIDERS: PCP Nurse Practitioner Family; Referring Provider Otolaryngology; Visit Provider Otolaryngology
DX: J32.0 Chronic maxillary sinusitis (principal); J32.2 Chronic ethmoidal sinusitis
CPT/HCPCS: 70486

== ENCOUNTER → 2021-11-12 | Outpatient (CLI) | payer MEDICAID, SELFPAY ==
--- NOTE | 2021-11-12 09:58 | PFTCOMP ---
COMPLETE PULMONARY FUNCTION TEST INTERPRETATION Brief HPI: Patient is a 35 year old female, currently under the care of Dr. Denny, who presents to [facility] for complete pulmonary function tests secondary to diagnosis of chronic cough. Respiratory therapist reports good effort and reproducible results. Interpretation: Forced expiration spirometry shows no large airways obstructive ventilatory defect with an FEV1 of 111% predicted. There is no significant bronchodilator response by strict ATS criteria. Spirograms are of good quality and plateau normally. The respiratory flow volume loop shows a normal pattern. Lung volumes by body plethysmography show a normal total lung capacity at 5.61 L, 95% predicted. All other lung volumes are within normal limits. Diffusion capacity by carbon monoxide is normal at 97% predicted. The airway resistance is normal. No previous pulmonary function tests were available for review. Impression: These pulmonary function tests are within normal limits
== END | disposition home or self-care (01) ==
LOC: PSN 07:13
PROVIDERS: PCP Internal Medicine Infectious Disease; Referring Provider Internal Medicine Critical Care Medicine; Visit Provider Internal Medicine Critical Care Medicine
DX: R05.3 Chronic cough (principal)
CPT/HCPCS: 94060; 94726; 94729

== ENCOUNTER → 2021-12-29 | Outpatient (CLI) | payer MEDICAID, SELFPAY ==
[2022-01-01 20:48] LABS: HPV Reflexed? NOT INDICATED
== END | disposition home or self-care (01) ==
LOC: LABSPEC 12:18
PROVIDERS: PCP Internal Medicine Infectious Disease; Visit Provider Obstetrics & Gynecology
DX: Z12.4 Encounter for screening for malignant neoplasm of cervix (principal)
CPT/HCPCS: 88175; G0145

== ENCOUNTER 2022-03-27 12:03 | Emergency (ER) | payer MEDICAID, SELFPAY ==
[2022-03-27 12:04] VITALS: BP 146/86; PULSE 80; RESP 14; TEMP 36.3; O2SAT 100; BMI 34.9
[2022-03-27 13:18] VITALS: BP 128/72
--- NOTE | 2022-03-27 13:19 | EKG12_ITS ---
Test Reason : HTN Blood Pressure : / mmHG Vent. Rate : 079 BPM Atrial Rate : 079 BPM P-R Int : 144 ms QRS Dur : 088 ms QT Int : 384 ms P-R-T Axes : 028 026 020 degrees QTc Int : 440 ms Normal sinus rhythm Normal ECG Confirmed by LULY FUENTES, BENJAMIN ([id number]), assistant film editor CHANDU WOODWARD ([id number]) on 03/28/2022 10:23:46 AM Referred By: RU Confirmed By:BENJAMIN MAURICIO MD
--- NOTE | 2022-03-27 13:20 | EDS_ITS ---
HPI History of Present Illness Chief Complaint: Hypertension Detail of Chief Complaint: High blood pressure Informant: patient Narrative Narrative: Patient presents with high blood pressure that started 2 months ago. Patient's been checking her blood pressure at home because sometimes she will feel like she hears her heartbeat in her ear. Patient has been seen by her primary care physician and was told that normally her blood pressure is low and she did not need to be on blood pressure medicine. Patient states that she had been on metoprolol a while back for blood pressure but then she had a bunch of testing and they took her off her medications as at times her heart rate would go low. Patient denies any headache. She denies chest pain. Sometimes she will have some bloating in the upper abdomen and that is relieved with belching. She denies recent illness. She denies fever. [facility] Medical History (Updated 03/27/22 @ 14:[address] Patricia Sage, DO) Abdominal pain, left upper quadrant Acid reflux Acute pharyngitis, unspecified Anxiety Benign essential hypertension with target blood pressure below 140/90 Breast mass, left COVID-19 Fibromyalgia Gallbladder sludge Gastro-esophageal reflux disease without esophagitis Gross hematuria History of back problems Irritable bowel syndrome Left flank pain Left shoulder pain Migraine Moderate episode of recurrent major depressive disorder Muscle weakness of extremity Myalgia Paresthesia Vitamin D deficiency, unspecified Wheezing without diagnosis of asthma Home Medications pantoprazole 40 mg tablet,delayed release 40 mg PO DAILY 09/23/21 [History Last Taken Unknown] vitamin C 500 mg-multivitamin with minerals chewable tablet (Emergen-C) 1 tab PO DAILY 09/23/21 [History Last Taken Unknown] Allergy/AdvReac Type Severity Reaction Status Date / Time naproxen [From Naprosyn] Allergy Upset Verified 03/27/22 12:04 Stomach Family History (Updated 10/01/21 @ 08:03 by Raven Myers) Grandfather Cancer Lung cancer Grandmother Diabetes Aunt Breast cancer Uncle Kidney disease Surgical History History of section Social History (Updated 11/05/18 @ 16:[address] Yann Keen MD) Smoking Status: Never smoker alcohol intake: never substance use type: does not use EXAM Physical Exam Const Vital Signs: 03/27/22 12:04 03/27/22 13:18 Temperature 97.4 F L Temperature Source Temporal Pulse Rate 80 Respiratory Rate 14 Blood Pressure 146/86 H 128/72 H Blood Pressure Mean 106 90 Pulse Ox 100 Oxygen Delivery Method Room Air MDM MDM MDM Narrative Medical decision making narrative: Patient presents for complete concern of elevated blood pressures. Initial blood pressure was 146/86 and without treatment went down to 128/72. Basic work-up including EKG and labs and urinalysis were unremarkable. At this point patient feels like maybe her blood pressure rises related to some GI issues she is been having and she is seeing a product accountant for this. This point I will feel any further treatments indicated. Patient advised to continue follow- up with GI and her primary care physician. Lab Data Attestation: I reviewed the patient's lab results. Labs: Laboratory Results - last 24 hr 03/27/22 03/27/22 03/27/22 13:30 13:35 13:35 WBC 10.7 RBC 5.08 Hgb 13.8 Hct 43.4 MCV 85.4 MCH 27.2 MCHC 31.8 L RDW Std Deviation 42.5 RDW Coeff of Abhishek 13.6 Plt Count 356 MPV 9.8 Sodium 139 Potassium 3.6 Chloride 107 Carbon Dioxide 25.0 Anion Gap 7 BUN 11 Creatinine 0.67 Estim Creat Clear Calc 118.22 Est GFR (MDRD) Af Amer 129 Est GFR (MDRD) Non-Af 107 BUN/Creatinine Ratio 16.5 Glucose 100 Calcium 9.4 Troponin I High Sens 3 Urine Color Yellow Urine Clarity Clear Urine pH 6.5 Ur Specific [place] 1.010 Urine Protein Negative Urine Glucose (UA) Normal Urine Ketones Negative Urine Occult Blood 10 H Urine Nitrite Negative Urine Bilirubin Negative Urine Urobilinogen Normal Ur Leukocyte Esterase Negative Urine RBC 0 SEEN Urine WBC 0 SEEN Ur Squamous Epith Cells 0-5 SEEN Urine Bacteria RARE Urine Mucus 0 SEEN EKG Initial EKG: Attestation: I personally reviewed and interpreted this EKG as follows: Comments: Sinus rhythm with a ventricular rate 79 bpm with no acute ST segment changes Discharge Plan Triage Chief Complaint: Hypertension ED Provider: Patricia Sage Dx/Rx/DC Orders Clinical Impression: Hypertension Instructions: ED Hypertension, To Be Confirmed Prescriptions: No Action Emergen-C 500 mg tablet,chewable 1 tab PO DAILY pantoprazole 40 mg tablet,delayed release (DR/EC) 40 mg PO DAILY Primary Care Provider: Naun Mcdonald Referrals: Naun Mcdonald MD [Primary Care Provider] - 3-5 Days Disposition Disposition: Home, Self Care
[2022-03-27 13:40] LABS: Mucous, Urine 0 SEEN /hpf (<or=2+); Red Blood Cells-Urine 0 SEEN /hpf (0-5); White Blood Cells 0 SEEN /hpf (0-5)
[2022-03-27 13:45] LABS: Hematocrit 43.4 % (37-47); Hemoglobin 13.8 g/dL (12.0-15.0); Mean Corp Hgb Conc 31.8 g/dL (32-36); Mean Corpuscular Hgb 27.2 pg (27.0-32.0); Mean Corpuscular Volume 85.4 fL (81-99); Mean Platelet Vol. 9.8 fl (6.2-12.0); Platelet Count 356 K/mm3 (150-450); RBC Distribution Width CV 13.6 % (11.6-14.6); RBC Distribution Width SD 42.5 fl (35.1-43.9); Red Blood Count 5.08 M/mm3 (4.2-5.4); White Blood Count 10.7 K/mm3 (4.4-11.0)
[2022-03-27 13:46] LABS: Color, Urine Yellow (Yellow); Glucose, Dipstick Normal (Normal); Ketone-Dipstick Negative (Negative); Leukocyte Esterase-Dipstick Negative /ul (Negative); Nitrite-Dipstick Negative (Negative); Occult Blood-Urine 10 /ul (Negative); Protein-Dipstick Negative (Negative); Urine Bilirubin Dipstick Negative (Negative); Urine Clarity Clear (Clear); Urine Urobilinogen Normal (Normal); Urine pH 6.5 (5.0 - 8.0)
[2022-03-27 14:01] LABS: Anion Gap 7 (5-15); BUN 11 mg/dL (7-18); BUN/Creat Ratio 16.5 RATIO (10-20); Calcium,Total 9.4 mg/dL (8.5-10.1); Chloride 107 mmol/L (98-107); Creatinine, Serum 0.67 mg/dL (0.55-1.02); EST Glomerular Filtration Rate 107 mL/min (>60); Est Glom Filt Rate - Afr Amer 129 mL/min (>60); Estimated Creatinine Clearance 118.22 ml/min; Glucose 100 mg/dL (74-106); Potassium 3.6 mmol/L (3.5-5.1); Sodium Level 139 mmol/L (136-145); Troponin-I HS 3 pg/mL (3.0-54.0)
[2022-03-27 14:01] LABS: Bacteria RARE /hpf (None Seen); Squamous Epithelial Cells - UA 0-5 SEEN /hpf (5-10)
== END 2022-03-27 14:30 | disposition home or self-care (01) ==
PROVIDERS: Emergency Provider Emergency Medicine; PCP Internal Medicine Infectious Disease; Visit Provider Emergency Medicine
DX: I10 Essential (primary) hypertension (principal); K21.9 Gastro-esophageal reflux disease without esophagitis; Z79.899 Other long term (current) drug therapy; Z86.16 Personal history of COVID-19
CPT/HCPCS: 80048; 81001; 84484; 85027; 93005; 99284

== ENCOUNTER 2022-04-26 13:44 | Day surgery (SDC) | payer MEDICAID, SELFPAY ==
[2022-04-26] VITALS (7 sets, daily range): BP systolic 106–123; BP diastolic 61–78; PULSE 62–75; RESP 16–18; TEMP 36.1–36.5; O2SAT 97–100; BMI 36.8
--- NOTE | 2022-04-26 14:03 | HP.PCM_ITS ---
History and Physical Date of Admission: 04/26/22 MELITA CANDELARIO, is a 36 F who presents to the office today for Initial consult. Melita established with this clinic 03.10.22 with referral from PCP to establish care for uncontrolled GERD with cough and postnasal drip. Onset approximately 2 years prior with worsening following COVID infection . She was previously established with a operations and maintenance technician who retired; next operations and maintenance technician who referred her to [place] for a surgery which she cannot remember the name of. Protonix 40mg BID has not been controlling symptoms. Underwent PFT with normal results. Reports she has had two EGD and a colonoscopy; none of these records are available at time of presentation. PMH left breast mass; fibromyalgia; migraines; depression. US abd 2.. for RUQ pain with liver measuring 14.9cm with normal echogenicity. Exam without acute or chronic abnormality. ROS Const Constitutional: No other (as above) Exam Const General: cooperative, healthy appearing, comfortable and no acute distress Nutritional Appearance: well nourished Orientation: alert, awake and oriented x3 HENMT Head: normal to inspection Ears: hearing grossly normal bilaterally, external ears normal, TM's normal bilaterally and EAC's normal Nose: external nose normal, nares normal, septum normal and no nasal discharge Face and sinus: normal facial exam, sinuses nontender and face symmetric Mouth: oral mucosae normal, lip normal, tongue normal and moist mucous membranes Throat: posterior oropharynx normal, uvula midline, abnormal tonsil bilaterally erythema (Trace); no exudates and no hypertrophy and no postnasal drainage Eyes General: appearance normal, both eyes and all related structures Neck Neck: normal visual inspection, full ROM, no lymphadenopathy, no meningeal signs and supple Neck mass: No Thyroid: thyroid normal Lymphatic: no lymphadenopathy noted Chest Chest palpation & inspection: normal inspection of the chest Resp Effort & Inspection: normal respiratory effort, able to speak in complete sentences, symmetric chest movement and no cough Auscultation: Bilateral: Clear to Auscultation Cardio Palpation: normal PMI Rate: regular rate Rhythm: regular rhythm Heart Sounds: S1 normal, S2 normal, no gallops, no murmurs and no rubs Pulses: radial pulses present Skin General: no rashes or lesions noted Neuro General: patient alert, patient awake, patient oriented x3 and gait normal Cognition: normal cognition Speech: speech normal Gait: normal gait Motor: muscle tone normal throughout Sensory Exam: no sensory deficits noted Psych Appearance: grossly normal Mental Status: mental status grossly normal Mood: congruent mood Affect: normal affect Speech and Movement: speech and movement normal Attitude: cooperative Thought Process: normal Thought Content: normal Judgment: judgment good Quality Reporting Tobacco Screening ([facility]) Smoking Status: Never smoker Assessment and Plan Assessment and Plan (1) Acid reflux: ?Plan: We will perform to have in order to evaluate her for refractory reflux disease.? The first test will be a gastric emptying study to see if the reason why she cannot have relief from once a day PPI therapy has anything to do with delayed gastric emptying.? Second we will perform an EGD with Leonardo study to determine the pH of the esophagus.? We will also visually assess her hiatal hernia and a Laxed lower esophageal sphincter.? She may also need food allergy testing in the future. ? ? ? Orders: Orders Gastric Emptying Study Today K21.9 - Gastro-esophageal reflux disease without esophagitis ? I have re-examined the patient. There are no clinical changes since date of exam.
[2022-04-26] MEDS: Lactated Ringers 1,000 ML 15 ML IV (14:05)
--- NOTE | 2022-04-26 14:15 | IMM_PTH ---
PATIENT: TOSHIA MELVIN LOC: EN U#:[id number] AGE/SX: 36/F ROOM: RE04/26/[address]: Dr. Joseph Mueller DO : 1985 BED: DIS: 04/26/2022 SPEC #: [id number] RECD: 04/27/22 09:07 STATUS: MARY ANNE REQ #: [id number] TONY: 04/26/22 14:[address]: Joseph Mueller DEPT: IMMUNOHISTOCHEMISTRY RECD BY: Radha Gloria ENTERED: 04/27/22 09:08 SP TYPE: IMMUNO OTHR DR: Dr. Naun Mcdonald MD Tissues: B - Stomach, NOS Procedures: H Pylori (initial) PHYSICIAN & INSTITUTION [place] [id number] SPECIMEN INFORMATION: Tissue Source: B ? Gastric antrum Clinical Info: Acid reflux Specimen Number: [id number] CPT code: 49024 METHODOLOGY: Deparaffinized sections of prefer/formalin-fixed tissue or PAP/DQ stained slides are incubated with monoclonal/polyclonal antibodies/oligonucleotide probes. Localization is made via biotin free immunoperoxidase method. Appropriate controls are performed and reacted as expected. Results on target cell population are indicated in the following table: RESULTS: ANTIBODY / CLONE RESULT Block B H Pylori (polyclonal) negative These tests were developed and their performance characteristics determined by [facility]. They may not have been cleared or approved by the U.S. Food and Drug Administration. The FDA has determined that such clearance or approval is not necessary. The above immunohistochemical/dualISH markers are ordered and reviewed by the Pathologist. INTERPRETATION: B. Gastric antrum, biopsy: Negative for Helicobacter pylori organisms. AM:hilda 04/29/2022
[2022-04-26 14:43] LABS: Internal QC Validated? YES +Cl - CLEAR BKGD
[2022-04-26 14:44] LABS: Pregnancy, Urine Negative Negative
--- NOTE | 2022-04-26 14:45 | EGD_PTH ---
PATIENT: TOSHIA MELVIN LOC: EN U#:[id number] AGE/SX: 36/F ROOM: RE04/26/[address]: Dr. Joseph Mueller DO : 1985 BED: DIS: 04/26/2022 SPEC #: [id number] RECD: 04/26/22 16:25 STATUS: MARY ANNE BRANDEN #: [id number] TONY: 04/26/22 14:[address]: Joseph Mueller DEPT: SURGICAL PATHOLOGY RECD BY: Xiomara Arzola ENTERED: 04/27/22 09:24 SP TYPE: EGD BIOPSY OT DR: Dr. Naun Mcdonald MD Tissues: A - Duodenum, NOS B - Gastric mucous membrane C - Esophagus, NOS Procedures: Special Stain Group II Surgery Specimen Level IV Alcian Blue/PAS (control) HEADER OPERATION: [place] with biopsies [place] [place] PRE[place]OP DIAGNOSIS: Acid reflux TISSUE SUBMITTED: A ? Duodenum biopsy, B ? Gastric antrum biopsy for H. pylori and path, C ? Distal esophagus biopsy MICROSCOPIC DIAGNOSIS A. Duodenum, biopsy: No pathologic change. B. Gastric antrum, biopsy: Chronic gastritis with focal active gastritis. See comment. C. Distal esophagus, biopsy: Gastroesophageal junctional mucosa with chronic inflammation. No evidence of goblet cell metaplasia. See comment. AM:hilda 04/28/2022 COMMENT B. The results of immunohistochemistry for Helicobacter pylori will be reported separately ([id number]). C. Alcian blue/PAS stain with matched control supports the above diagnosis. MICROSCOPIC DESCRIPTION Slides are reviewed. GROSS DESCRIPTION A - Received in fixative is one container labeled with the patient's name and designated duodenum biopsy. The specimen consists of two irregular fragments of light ruffin soft tissue that in aggregate measure 0.6 x 0.3 x 0.1 cm. The specimen is totally submitted in one cassette. B - Received in fixative is one container labeled with the patient's name and designated gastric antrum biopsy. The specimen consists of two irregular fragments of light ruffin soft tissue that in aggregate measure 1 x 0.4 x 0.1 cm. The specimen is totally submitted in one cassette. C - Received in fixative is one container labeled with the patient's name and designated distal esophagus biopsy. The specimen consists of multiple irregular fragments of light ruffin soft tissue that in aggregate measure 1 x 0.3 x 0.1 cm. The specimen is totally submitted in one cassette. / SJ:rg 04/27/2022 TC:3 CPT: 92035 x3, 11464
--- NOTE | 2022-04-26 16:23 | OP.EGD_ITS ---
Patient Name: Melita Jefferson Procedure Date: 04/26/2022 3:52 PM Date of : 1985 Age: 36 Procedure: Upper GI endoscopy Indications: Heartburn, Failure to respond to medical treatment Providers: Joseph Mueller DO Medicines: Monitored Anesthesia Care Patient Profile: This is a 36 year old female. Refer to note in patient chart for documentation of history and physical. Patient has symptoms of chronic dyspepsia and acute heartburn. Complications: No immediate complications. Procedure: Pre-Anesthesia Assessment: - Prior to the procedure, a History and Physical was performed, and patient medications and allergies were reviewed. The patient is competent. The risks and benefits of the procedure and the sedation options and risks were discussed with the patient. All questions were answered and informed consent was obtained. Patient identification and proposed procedure were verified by the physician in the pre-procedure area. Mental Status Examination: alert and oriented. Airway Examination: normal oropharyngeal airway and neck mobility. Respiratory Examination: clear to auscultation. CV Examination: normal. Prophylactic Antibiotics: The patient does not require prophylactic antibiotics. Prior Anticoagulants: The patient has taken no previous anticoagulant or antiplatelet agents. After reviewing the risks and benefits, the patient was deemed in satisfactory condition to undergo the procedure. The anesthesia plan was to use monitored anesthesia care (MAC). Immediately prior to administration of medications, the patient was re-assessed for adequacy to receive sedatives. The heart rate, respiratory rate, oxygen saturations, blood pressure, adequacy of pulmonary ventilation, and response to care were monitored throughout the procedure. The physical status of the patient was re-assessed after the procedure. After obtaining informed consent, the endoscope was passed under direct vision. Throughout the procedure, the patient's blood pressure, pulse, and oxygen saturations were monitored continuously. The gastroscope was introduced through the mouth, and advanced to the second part of duodenum. The upper GI endoscopy was accomplished without difficulty. The patient tolerated the procedure well. Scope In: 4:06:22 PM Scope Out: 4:13:22 PM Total Procedure Duration Time 0 hours 7 minutes 0 seconds Findings: The Z-line was irregular and was found 36 cm from the incisors. Biopsies were taken with a cold forceps for histology. Biopsies were taken with a cold forceps for histology. Verification of patient identification for the specimen was done. Estimated blood loss was minimal. Clear fluid was found in the stomach. Patchy mildly erythematous mucosa without bleeding was found in the gastric antrum. Biopsies were taken with a cold forceps for histology. Verification of patient identification for the specimen was done. Estimated blood loss was minimal. No gross lesions were noted in the second portion of the duodenum. Impression: - Z-line irregular, 36 cm from the incisors. Biopsied. - Clear gastric fluid. - Erythematous mucosa in the antrum. Biopsied. - No gross lesions in the second portion of the duodenum. Recommendation: - Discharge patient to home. - Resume previous diet. - Continue present medications. - Await pathology results. - Gastric emptying study -Sucralfate 1 g p.o. twice daily Procedure Code(s): --- Professional --- 83045, Esophagogastroduodenoscopy, flexible, transoral; with biopsy, single or multiple CPT copyright 2017 [employer]. All rights reserved. The codes documented in this report are preliminary and upon slabber review may be revised to meet current compliance requirements. Joseph Mueller DO 04/26/2022 4:22:54 PM This report has been signed electronically. Number of Addenda: 0 Note Initiated On: 04/26/2022 3:52 PM
--- NOTE | 2022-04-26 16:24 | OP.CCLET_ITS ---
04/26/2022 Naun Mcdonald [address] [id number] Re : Upper GI endoscopy procedure for Melita Jefferson Dear Dr. Mcdonald This procedure was performed on Tuesday, April 26, 2022. My impressions and recommendations are as follows: Impressions : - Z-line irregular, 36 cm from the incisors. Biopsied. - Clear gastric fluid. - Erythematous mucosa in the antrum. Biopsied. - No gross lesions in the second portion of the duodenum. Recommendations : - Discharge patient to home. - Resume previous diet. - Continue present medications. - Await pathology results. - Gastric emptying study -Sucralfate 1 g p.o. twice daily My findings are described in the full procedure note, which is enclosed. If I can be of further assistance, please feel free to contact me at . Sincerely, Joseph Friend, 04/26/2022 4:22:54 PM This report has been signed electronically.
== END 2022-04-26 17:00 | disposition home or self-care (01) ==
LOC: EN 13:49 → AC 13:50
PROVIDERS: Anesthesiology; PCP Internal Medicine Infectious Disease; Referring Provider Internal Medicine Infectious Disease; Visit Provider Internal Medicine Gastroenterology
PROC: 0DJ08ZZ Inspection of Upper Intestinal Tract, Via Natural or Artificial Opening Endoscopic (ICD-10-PCS; CPT 43235; principal; 2022-04-26 14:40)
DX: K21.9 Gastro-esophageal reflux disease without esophagitis (principal); K29.50 Unspecified chronic gastritis without bleeding; K44.9 Diaphragmatic hernia without obstruction or gangrene; Z28.310 Unvaccinated for COVID-19; Z28.9 Immunization not carried out for unspecified reason; Z86.16 Personal history of COVID-19
CPT/HCPCS: 43239; 81025; 88305; 88313; 88342; J7120; J2405

== ENCOUNTER → 2022-06-22 | Outpatient (CLI) | payer MEDICAID, SELFPAY ==
--- NOTE | 2022-06-22 10:18 | NM_ITS ---
CLINICAL: 36-year-old female with history of gastroesophageal reflux disease. SEMI-SOLID PHASE 99m Tc SULFUR COLLOID GASTRIC EMPTYING STUDY COMPARISON: None available FINDINGS: The patient was administered 1.0 mCi of 99m Tc sulfur colloid mixed with oatmeal and consumed per os. Image acquisitions in the anterior-posterior projections were obtained for 60 minutes. There is prompt visualization of the stomach. There is no gastroesophageal reflux identified. The T ? linear fit was calculated to be 51.05 minutes, (Normal: 12-56 minutes). NM/Gastric Emptying Study IMPRESSION: 1. NORMAL 99m Tc sulfur colloid semi-solid phase (oatmeal) gastric emptying imaging examination. A. There is upper limits of normal and preserved semi-solid phase gastric emptying compared to normal controls. (Wallace et al, J Nucl Med Tech 38: 186, 2010). Electronically Signed: Hosea Mcmullen, at 22:53 EST ,
== END | disposition home or self-care (01) ==
LOC: NM 10:18
PROVIDERS: PCP Internal Medicine Infectious Disease; Referring Provider Internal Medicine Gastroenterology; Visit Provider Internal Medicine Gastroenterology
DX: K21.9 Gastro-esophageal reflux disease without esophagitis (principal)
CPT/HCPCS: 78264; A9541

== ENCOUNTER → 2022-07-04 | Outpatient (CLI) | payer MEDICAID, SELFPAY ==
--- NOTE | 2022-07-04 17:35 | MRI_ITS ---
STUDY: MRI CERVICAL SPINE WITHOUT CONTRAST REASON FOR EXAM: Female, 36 years old. STENOSIS, SPONDYLOSIS WITH RADICULOPATHY,DDD TECHNIQUE: Standardized fat and water weighted pulse sequences were obtained in the sagittal and axial planes. COMPARISON: None FINDINGS: Normal foramen magnum and brainstem-cervical cord junction. Normal craniovertebral junction. Normal anterior atlantoaxial articulation. Normal odontoid process. Normal cervical lordosis. Normal vertebral bodies and posterior osseous elements. C2-3: Normal endplates. Normal disc height, signal and morphology. Normal central canal and intervertebral neural foramina. C3-4: Normal endplates. Normal disc height, signal and morphology. Normal central canal and intervertebral neural foramina. C4-5: Normal endplates. Normal disc height, signal and morphology. Normal central canal and intervertebral neural foramina. C5-6: Normal endplates. Normal disc height, signal and morphology. Normal central canal and intervertebral neural foramina. C6-7: Normal endplates. Normal disc height, signal and morphology. Normal central canal and intervertebral neural foramina. C7-T1: Normal endplates. Normal disc height, signal and morphology. Normal central canal and intervertebral neural foramina. Normal cervical cord. Normal visualized soft tissue structures. MRI/Spine Cervical (Routine) IMPRESSION: Normal unenhanced MR examination of the cervical spine. Electronically Signed: Emily Tejeda MD at 4:43 EST ,
== END | disposition home or self-care (01) ==
LOC: MRI 17:26
PROVIDERS: PCP Internal Medicine Infectious Disease; Visit Provider Orthopaedic Surgery
DX: M48.02 Spinal stenosis, cervical region (principal); M47.22 Other spondylosis with radiculopathy, cervical region; M50.30 Other cervical disc degeneration, unspecified cervical region
CPT/HCPCS: 72141

== ENCOUNTER → 2023-06-30 | Outpatient (CLI) | payer MEDICAID, SELFPAY ==
--- NOTE | 2023-06-30 18:55 | CT_ITS ---
INDICATION: abdominal pain EXAMINATION: CT ABDOMEN AND PELVIS WITH CONTRAST - CT Abdomen And Pelvis W/ Contrast Injection TECHNIQUE: Helically acquired images were obtained of the abdomen and pelvis following IV contrast. A radiation dose optimization technique was used for this scan. IV Contrast dosage and agent: 100 cc [id number] Oral contrast: Yes. COMPARISON: None. FINDINGS: LOWER CHEST: Lung bases are clear. No cardiomegaly or pericardial effusion. LIVER: Homogeneous. No focal mass. GALLBLADDER AND BILIARY TREE: No calcified gallstones. No gallbladder distension or wall edema. No intra- or extrahepatic biliary ductal dilation. PANCREAS: No focal cystic or solid mass. SPLEEN: Normal size without focal cystic or solid mass. ADRENAL GLANDS: No nodules. KIDNEYS AND URETERS: Normal renal size and position. No hydronephrosis. PERITONEUM: No ascites or free air. BOWEL: Normal appendix. No stomach or bowel distension. No focal inflammatory change. LYMPH NODES: Scattered mildly enlarged mesenteric lymph nodes in the midabdomen, nonspecific finding. VESSELS: Aorta is non-dilated. URINARY BLADDER: Nondistended. REPRODUCTIVE ORGANS: IUD in place. No pelvic masses. ABDOMINAL WALL: Small fat-containing paraumbilical hernia. BONES: No acute or aggressive abnormality. CT/Abdomen/Pelvis WITH Contrast IMPRESSION: No acute findings in the abdomen or pelvis. Electronically Signed: Ramy Cervantes MD at 18:50 EST ,
== END | disposition home or self-care (01) ==
LOC: CT 18:53
PROVIDERS: PCP Internal Medicine Infectious Disease; Referring Provider Internal Medicine Gastroenterology; Visit Provider Internal Medicine Gastroenterology
DX: R10.9 Unspecified abdominal pain (principal)
CPT/HCPCS: 74177; Q9967

== ENCOUNTER 2024-02-02 16:27 | Emergency (ER) | payer MEDICAID, SELFPAY ==
[2024-02-02 16:28] VITALS: BP 131/93; PULSE 85; RESP 18; TEMP 36.6; O2SAT 99; BMI 37.8
--- NOTE | 2024-02-02 16:58 | ED.RN ---
pt left department without discussing it with this RN. Previously, pt asked how long wait was. She stated that if it was too long she would come back another time.
== END 2024-02-02 17:15 | disposition left against medical advice (07) ==
LOC: ED 17:16
PROVIDERS: PCP Internal Medicine Infectious Disease
DX: R69 Illness, unspecified (principal); Z53.21 Procedure and treatment not carried out due to patient leaving prior to being seen by health care provider

== ENCOUNTER 2024-02-06 12:32 | Emergency (ER) | payer MEDICAID, SELFPAY ==
[2024-02-06 12:34] VITALS: BP 149/89; PULSE 105; RESP 18; TEMP 36.9; O2SAT 100; BMI 39.2
--- NOTE | 2024-02-06 12:58 | EDS_ITS ---
HPI HPI - GI History of Present Illness Chief Complaint: Abd Pain Narrative Narrative: 38-year-old female presents with multiple somatic complaints, but mainly regarding her abdomen. She states over the last 3 weeks she has noticed change in frequency of her stool, that she is going more often. She has history of chronic GERD for which she sees her halver machine operator Dr. Mueller. She states over the last few days, while she is not having diarrhea, her stool has been softer. On occasion it has been mixed with blood and mucus as well. Additionally, today she vomited bile once without any blood in her emesis. She has more epigastric to left upper quadrant abdominal pain. No exacerbating or alleviating factors. [facility] Medical History Panic disorder Allergic conjunctivitis of both eyes Acute pharyngitis, unspecified JATIN (generalized anxiety disorder) Acute pharyngitis, unspecified Migraine Fibromyalgia Vitamin D deficiency, unspecified Myalgia Wheezing without diagnosis of asthma Paresthesia Muscle weakness of extremity Moderate episode of recurrent major depressive disorder Benign essential hypertension with target blood pressure below 140/90 Gross hematuria Gastro-esophageal reflux disease without esophagitis COVID-19 Gallbladder sludge Abdominal pain, left upper quadrant Left shoulder pain Left flank pain Irritable bowel syndrome Breast mass, left Acid reflux Anxiety History of back problems Home Medications ?Medication ?Instructions ?Recorded ?Last Taken ?Type erenumab-aooe 140 mg/mL ml subcut 08/29/22 Unknown History subcutaneous auto-injector (Aimovig Autoinjector) propranolol 10 mg tablet 10 mg PO TID PRN anxiety #90 tabs 11/22/23 Unknown Rx sertraline 100 mg tablet 100 mg PO DAILY 30 days #30 tabs 11/22/23 Unknown Rx esomeprazole magnesium 40 mg 40 mg PO DAILY #30 caps 12/19/23 Unknown Rx capsule,delayed release sucralfate 1 gram tablet 1 g PO TID-QID #120 tabs 12/19/23 Unknown Rx Allergy/AdvReac Type Severity Reaction Status Date / Time naproxen (From Naprosyn) Allergy Upset Verified 02/06/24 12:34 Stomach Family History Grandfather Cancer Lung cancer Grandmother Diabetes Aunt Breast cancer Uncle Kidney disease Surgical History History of section Social History Smoking Status: Never smoker alcohol intake: never substance use type: does not use ROS ROS ED ROS Narrative Constitutional: No fever, no chills. HEENT: No sore throat. No neck pain. No loss of vision. No rhinorrhea. Cardiovascular: No chest pain. No palpitations. No pedal edema. Respiratory: No cough, no shortness of breath. Abdominal: Epigastric to left upper quadrant abdominal pain. 1 episode of bilious vomiting and nausea today. Over the last 3 weeks, increase in frequency of stool and softer, but not watery. Stool reportedly mixed with mucus and blood/blood tinges. Genitourinary: No dysuria. No hematuria. Musculoskeletal: No myalgias. No arthralgias. Neurologic: No headaches. No dizziness. No lightheadedness. Skin: No rash. No change in color. Psychiatric: No depression. No anxiety. EXAM Physical Exam Narrative Exam Narrative: Afebrile. Vital signs noted. HEENT: Normocephalic. Atraumatic. PERRL, EOMI. Neck soft and supple. No point tenderness or step off. Cardiovascular: Regular rate and rhythm. No murmurs, rubs, or gallops appreciated. Respiratory: No tachypnea. Lungs clear to auscultation bilaterally. Gastrointestinal: Abdomen soft, obese minimal tenderness epigastrium to left upper quadrant, with normoactive bowel sounds. No rebound or guarding. Neurological: Awake. Alert. Nonfocal, nonlateralizing. Skin: No rash. Normal color. No pallor. Musculoskeletal: No pedal edema. Full range of motion extremities. Const Vital Signs: 02/06/24 12:34 Temperature 98.4 F Temperature Source Temporal Pulse Rate 105 H Respiratory Rate 18 Blood Pressure 149/89 H Blood Pressure Mean 109 Pulse Ox 100 Oxygen Delivery Method Room Air MDM MDM MDM Narrative Medical decision making narrative: In the differential diagnosis is pancreatitis versus gastroenteritis versus IBS versus colitis. I had a lengthy discussion with the patient, and she even told triage that she is reluctant to have CT scanning because she has had a lot of CTs in the past and exposure to radiation. Most recently for her pulsatile tinnitus she had a CT performed requested by neurology. She was told the limitations of being unable to perform CT scan at diagnosing her abdominal pain, and acknowledges an understanding. I will perform laboratory work in the form of CBC, CMP, and lipase. Patient states that she was hoping for an ultrasound today, but I told her the limitations of that for her left upper quadrant abdominal pain and her change in stool. She still declines radiation exposure. She did state that her halver machine operator told her she may need endoscopy performed again. If there is elevation of her lipase or LFTs, I would consider gallbladder ultrasound, but she is having pain more in the epigastrium to left upper quadrant. I planned on discussing the patient with her halver machine operator. I was told by the organic section technical lead that patient is refusing blood draw by him because RN had attempted venipuncture 3 times already. He stated that she was refusing blood draw. In discussion with the patient, she states that she is not refusing a blood draw, but had told the RN that she was a difficult stick. I told her that without laboratory work or even imaging, that I am limited to a medical screening examination which is negative. I discussed with her signing out AGAINST MEDICAL ADVICE, but she refused to sign the paperwork because she did not want to be charged for anything. I explained to her that no tests or imaging has been performed, and she states that she prefers to follow-up with her halver machine operator and she plans on going to the office to schedule an appointment. Once again she refused to sign the AMA papers. I feel she has the capacity to make that decision to sign out AGAINST MEDICAL ADVICE although she did not sign paperwork. She is in stable condition. Discharge Plan Triage Chief Complaint: Abd Pain Other Complaint: GI Bleed ED Provider: Dc Bullock Dx/Rx/DC Orders Clinical Impression: Abdominal pain, Nausea and vomiting, Encounter for medical screening examination Prescriptions: No Action Aimovig Autoinjector 140 mg/mL auto-injector subcut esomeprazole magnesium 40 mg capsule,delayed release(DR/EC) 40 mg PO DAILY Qty: 30 2RF sucralfate 1 gram tablet 1 g PO TID-QID Qty: 120 0RF propranolol 10 mg tablet 10 mg PO TID PRN (Reason: anxiety) Qty: 90 1RF sertraline 100 mg tablet 100 mg PO DAILY 30 Days Qty: 30 2RF Primary Care Provider: Naun Mcdonald Referrals: Naun Mcdonald MD [Primary Care Provider] - Print Language: Burkinan Disposition Disposition: Against Medical Advice
--- NOTE | 2024-02-06 13:49 | ED.RN ---
Pt had 3 unsucessful IV attempts, one by Patrizia Cheema Rn and Megan Russ RN.
--- NOTE | 2024-02-06 13:50 | ED.RN ---
Pt had 2 unsuccessful IV attempts, 2 by Patrizia Cheema RN and 1 by Megan Russ RN. Pt stated she felt she did not receive proper care. This RN tried to explain importance of obtaining IV for assessment, pt not letting RN speak. Dr. Bullock in room to explain importance of blood work and IV, pt still refusing. Pt then refused to sign AMA paperwork. Pt has left department.
== END 2024-02-06 13:35 | disposition left against medical advice (07) ==
PROVIDERS: Emergency Provider Emergency Medicine; PCP Internal Medicine Infectious Disease; Visit Provider Emergency Medicine
DX: R10.13 Epigastric pain (principal); R10.12 Left upper quadrant pain; R11.2 Nausea with vomiting, unspecified; Z53.29 Procedure and treatment not carried out because of patient's decision for other reasons; Z86.16 Personal history of COVID-19
CPT/HCPCS: 99282; A4216

== ENCOUNTER 2024-08-20 13:54 | Day surgery (SDC) | payer MEDICAID, SELFPAY ==
[2024-08-20] VITALS (8 sets, daily range): BP systolic 91–108; BP diastolic 56–68; PULSE 70–88; RESP 14–18; TEMP 36–37; O2SAT 96–100; BMI 39.4
--- NOTE | 2024-08-20 14:04 | PCM.HP.STD ---
HPI - General General Date of Admission: 08/20/24 Date of Service: 08/20/24 Chief Complaint: Abdominal pain, nausea and GERD HPI Narrative TOSHIA CANDELARIO, is a 38 F who presents for the endoscopic evaluation of nausea and abdominal pain PMH left breast mass; fibromyalgia; migraines; depression.? ? US abd 08.27.20 for RUQ pain with liver measuring 14.9cm with normal echogenicity. Exam without acute or chronic abnormality. ? *[facility] established 03.10.22 with referral from PCP to establish care for uncontrolled GERD with cough and postnasal drip. Onset approximately 2 years prior with worsening following COVID infection . She was previously established with a yard switch operator who retired; next yard switch operator who referred her to [facility] for a surgery which she cannot remember the name of. Protonix 40mg BID has not been controlling symptoms. Underwent PFT with normal results. Reports she has had two EGD and a colonoscopy.?Linzess 290 and 72mcg attempted with diarrhea and urgent incontinence; protonix 40mg QD. ? EGD 04.26.22?noting irregular Zline 36cm; clear gastric fluid; erythematous antrum, gastritis. H.Pylori negative. Gastric emptying study 06.22.22 timed at 51.05 minutes (12-56).? OV 2..23 with continued acid reflux and intermittent upper R and L abdominal discomfort. Does have difficulty with constipation in the form of hard stool 2-3 times with complete evacuation but does not feel as though she is passing gas as she feels full most of the time.?Start doxycycline and amitiza.? OV 5..23 NoShow? OV 10..23 Pt reports her bowels have been okay since last visit. States Amitiza did not help. Has started taking probiotic and fiber which has helped with constipation some. Was prescribed ATB for sinus infection last week which did give her some diarrhea. One episode of blood seen during this time. Stools are getting better. Also reports increase in heartburn. Still taking Pantoprazole. Also feels gas and bloating after meals. OV 6.4.24 pt reports an increase in GERD symptoms for the last two weeks, describes the burning in her throat like when you put alcohol in a cut. Pt does not feel that Pantoprazole has been helpful and has started taking an old prescription of Sucralfate; states this has been helpful. Pt reports normal BM. OV 1.17.25 Pt continues to have issues with GERD symptoms. She will have severe heartburn every other week that is occasionally accompanied by nausea. Eating does not make her symptoms any worse or better. Pantoprazole dose not always seem to help. She takes rolaids PRN. She canceled her last scope as her PCP was concerned about her having so much anesthesia. [facility] Medical History Hepatitis Fatty liver Easy bruising Restless legs History of hiatal hernia Shortness of breath on exertion Leg cramps Panic disorder Allergic conjunctivitis of both eyes Acute pharyngitis, unspecified JATIN (generalized anxiety disorder) Acute pharyngitis, unspecified Migraine Fibromyalgia Vitamin D deficiency, unspecified Myalgia Wheezing without diagnosis of asthma Paresthesia Muscle weakness of extremity Moderate episode of recurrent major depressive disorder Benign essential hypertension with target blood pressure below 140/90 Gross hematuria Gastro-esophageal reflux disease without esophagitis COVID-19 Gallbladder sludge Abdominal pain, left upper quadrant Left shoulder pain Left flank pain Irritable bowel syndrome Breast mass, left Acid reflux Anxiety History of back problems Home Medications ?Medication ?Instructions ?Recorded ?Last Taken ?Type propranolol 10 mg tablet 10 mg PO TID PRN anxiety #90 tabs 11/22/23 Unknown Rx pantoprazole 40 mg tablet,delayed 40 mg PO DAILY 02/12/24 Unknown History release albuterol sulfate 90 mcg/actuation 1 inh inhalation Q4H PRN shortness 08/15/24 Unknown History breath activated powder inhaler of breath or wheezing cetirizine 10 mg capsule (All Day 10 mg PO DAILY 08/15/24 Unknown History Allergy (cetirizine)) Allergy/AdvReac Type Severity Reaction Status Date / Time naproxen (From Naprosyn) Allergy Upset Verified 08/15/24 16:23 Stomach Family History Grandfather Cancer Lung cancer Grandmother Diabetes Aunt Breast cancer Uncle Kidney disease Surgical History History of section Social History Smoking Status: Never smoker alcohol intake: never substance use type: does not use ROS Constitutional Constitutional: Denies fatigue, fever(s), poor appetite, weight gain or weight loss Gastrointestinal Gastrointestinal: Denies belching, bloating, change in bowel habits, change in stool character, chewing difficulty, coffee ground emesis, constipation, cramping, diarrhea, dyspepsia, dysphagia, early satiety, excessive flatus, fecal incontinence, heartburn, hematemesis, hematochezia, hemorrhoids, loose stools, melena, nausea, odynophagia, rectal bleeding, tenesmus, vomiting or weight changes Physical Exam Const alert, oriented x3, no apparent distress and healthy appearing General Appearance: cooperative GI normal to inspection, nondistended, normoactive bowel sounds, soft to palpation, non-tender and non-distended Percussion: normal to percussion Rectal Exam: deferred Assessment & Plan Assessment/Plan (1) GERD (gastroesophageal reflux disease): QUALIFIERS: Esophagitis presence: without esophagitis Qualified Code(s): K21.9 - Gastro-esophageal reflux disease without esophagitis (2) Abdominal pain: QUALIFIERS: Abdominal location: generalized Qualified Code(s): R10.84 - Generalized abdominal pain PLAN: Assessment and Plan Assessment and Plan (1) GERD (gastroesophageal reflux disease): Status: Chronic Qualifiers: Esophagitis presence: without esophagitis Qualified Code(s): K21.9 - Gastro-esophageal reflux disease without esophagitis Plan: This is a 38 yo female pt with chronic GERD symptoms here today for follow up. Her symptoms are not well controlled with PPI therapy. She will undergo EGD to assess her upper GI tract for gastritis, esophagitis or ulcers. She is agreeable to this. I will switch her to Voquenza as she has not tried this medication yet. She will take famotidine 40 mg PRN for breakthrough symptoms. -EGD -Start Voquneza -Famotidine 40 mg PRN -
--- NOTE | 2024-08-20 14:39 | PCM.PRE.AN2 ---
ASA Classification* ASA Classification ASA Classification: 3 Assessment & Plan Anesthesia* Anesthesia Assessment Anesthesia Assessment: Discussed sedation and/or anesthesia options, risks, benefits, and alternatives with patient/parents/legal guardian/POA. Questions invited. The patient/parents/legal guardian/POA seems to understand and agrees to proceed with anesthesia plan. Reviewed the physical assessment, medical history, allergy history and patient home medications list prior to surgery/procedure/anesthetic and documented any changes. Performed airway and anesthesia risk assessments. Anesthesia Type Anesthesia Type: MAC History Source History Obtained from:: Patient and Chart Anesthesia Focused Assessment* Temperature: 98.1 F Pulse Rate: 82 Blood Pressure: 108/66 Respiratory Rate: 16 Pulse Ox: 99 Oxygen Delivery Method: Room Air Airway Assessment Mouth opens: >3 cm Mallampati Score: II Teeth Condition: Caps/Crowns (Right upper molar has a crown. It is tight. Rest of the teeth are tight.) Neck Range of motion (ROM): Full ROM Focused Labs Anesthesia Preop lab: CBC WBC 10.7 K/mm3 (4.4-11.0) 03/27/22 13:35 03/27/22 RBC 5.08 M/mm3 (4.2-5.4) 03/27/22 13:35 03/27/22 Hgb 13.8 g/dL (12.0-15.0) 03/27/22 13:35 03/27/22 Hct 43.4 % (37-47) 03/27/22 13:35 03/27/22 Plt Count 356 K/mm3 (150-450) 03/27/22 13:35 03/27/22 CHEMISTRY Potassium 3.6 mmol/L (3.5-5.1) 03/27/22 13:35 03/27/22 Sodium 139 mmol/L (136-145) 03/27/22 13:35 03/27/22 BUN 11 mg/dL (7-18) 03/27/22 13:35 03/27/22 Creatinine 0.67 mg/dL (0.55-1.02) 03/27/22 13:35 03/27/22 Glucose 100 mg/dL (74-106) 03/27/22 13:35 03/27/22 TSH 0.90 uIU/mL (0.358-3.74) 01/24/17 14:29 01/24/17 COAG PT 12.0 SECONDS (11.7-14.9) 02/01/20 18:00 02/01/20 Urine Test Negative Negative 04/26/22 14:16 04/26/22 Pre-Assessment Diagnosis/Proposed Procedure Planned Operative Procedure(s): EGD Anesthesia History 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 When Was Last Pacemaker Check QUESTION #4 FULL TEXT: You/Your Family Experience fever (hyperthermia) with Anesthesia Any additional information?: Yes Any Problems With Anesthesia: Yes (Patient had episode of bradycardia and hypotension with her last epidural.) Cholinesterase deficiency: No You/your family experience fever (hyperthermia) with anesthesia: No Last Oral Intake Last Oral intake: Last Oral Intake NPO since 00:00 08/20/24 14:13 Meds taken in AM with sips of water? 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 Female Yes 08/15/24 16:27 HX of Motion Sickness No 08/15/24 16:27 HX of N/V After Surgery No 08/15/24 16:27 Non-Smoker Yes 08/15/24 16:27 Duration of Surgery greater No 08/15/24 16:27 than 60 minutes Number of Risk Factors 2 08/15/24 16:27 PONV Score Moderate Risk 08/15/24 16:27 Height & Weight Height & Weight: Anesthesia: Height & Weight Height 5 ft 8 in 08/20/24 14:13 Weight: 117.48 kg 08/20/24 14:13 Body Mass Index (BMI) 39.4 08/20/24 14:13 Respiratory Assessment Respiratory Assessment - grades 7 and 8 teacher: Respiratory Tract Infection Hx - grades 7 and 8 teacher Hx Respiratory Tract Infection No 08/15/24 16:27 STOP Sleep Apnea STOP Sleep Apnea - grades 7 and 8 teacher: STOP Sleep Apnea - grades 7 and 8 teacher Hx Hypertension Yes 08/15/24 16:27 Hx Sleep Apnea No 08/15/24 16:27 CPAP BIPAP Do you snore loudly (louder No 08/15/24 16:27 than talking or can be heard Do you often feel tired/ No 08/15/24 16:27 fatigued/ sleepy during daytime? Has anyone observed you stop No 08/15/24 16:27 breathing during sleep? STOP Results Negative 08/15/24 16:27 QUESTION #5 FULL TEXT : Do you snore loudly (louder than talking or can be heard through closed doors)? 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 Specify any problems Hx of Preganancy in last 3 No 08/15/24 16:27 Months Nurse Filling Out Transfusion [id number] 08/15/24 16:27 & Questions: Date: 08/15/24 08/15/24 16:27 Time: 16:30 08/15/24 16:27 Patient unable to answer at this time (ie. confused, unrespo /Reproduction History /Reproductive History - grades 7 and 8 teacher: /Reproductive Hx- grades 7 and 8 teacher Hx Now No 08/15/24 16:27 Gestational Age (in weeks): EDC: Hx Hx Para Hx Section SAB No 08/15/24 16:27 PFSH Medical History Hepatitis Fatty liver Easy bruising Restless legs History of hiatal hernia Shortness of breath on exertion Leg cramps Panic disorder Allergic conjunctivitis of both eyes Acute pharyngitis, unspecified JATIN (generalized anxiety disorder) Acute pharyngitis, unspecified Migraine Fibromyalgia Vitamin D deficiency, unspecified Myalgia Wheezing without diagnosis of asthma Paresthesia Muscle weakness of extremity Moderate episode of recurrent major depressive disorder Benign essential hypertension with target blood pressure below 140/90 Gross hematuria Gastro-esophageal reflux disease without esophagitis COVID-19 Gallbladder sludge Abdominal pain, left upper quadrant Left shoulder pain Left flank pain Irritable bowel syndrome Breast mass, left Acid reflux Anxiety History of back problems Home Medications ?Medication ?Instructions ?Recorded ?Last Taken ?Type propranolol 10 mg tablet 10 mg PO TID PRN anxiety #90 tabs 11/22/23 08/13/24 Rx pantoprazole 40 mg tablet,delayed 40 mg PO DAILY 02/12/24 Unknown History release albuterol sulfate 90 mcg/actuation 1 inh inhalation Q4H PRN shortness 08/15/24 Unknown History breath activated powder inhaler of breath or wheezing cetirizine 10 mg capsule (All Day 10 mg PO DAILY 08/15/24 Unknown History Allergy (cetirizine)) Allergy/AdvReac Type Severity Reaction Status Date / Time naproxen (From Naprosyn) Allergy Upset Verified 08/20/24 14:12 Stomach Family History Grandfather Cancer Lung cancer Grandmother Diabetes Aunt Breast cancer Uncle Kidney disease Surgical History History of section Social History Smoking Status: Never smoker alcohol intake: never substance use type: does not use Review of Systems (Anesthesia) ROS Narrative System reviewed and no additional complaints, except as documented.
[2024-08-20 14:48] LABS: Internal QC Validated? YES +Cl - CLEAR BKGD; Pregnancy, Urine Negative Negative
--- NOTE | 2024-08-20 15:00 | EGD_PTH ---
PATIENT: TOSHIA MELVIN LOC: EN U#:[id number] AGE/SX: 38/F ROOM: RE08/20/[address]: Dr. Joseph Mueller DO : 1985 BED: DIS: 08/20/2024 SPEC #: [id number] RECD: 08/21/24 09:13 STATUS: MARY ANNE REAndrés #: [id number] TONY: 08/20/24 15:[address]: Joseph Mueller DEPT: SURGICAL PATHOLOGY RECD BY: Rebecca Sheth ENTERED: 08/21/24 11:13 SP TYPE: EGD BIOPSY OT DR: Dr. Naun Mcdonald MD Tissues: Duodenum, NOS Procedures: Surgery Specimen Level IV HEADER OPERATION: EGD with biopsy PRE-OP DIAGNOSIS: GERD, abdominal pain TISSUE SUBMITTED: Duodenum biopsy MICROSCOPIC DIAGNOSIS Duodenum, biopsy: Fragments of duodenal mucosa with mild non-specific chronic inflammation, congestion and hemorrhage. SJ.mr 08/22/2024 MICROSCOPIC DESCRIPTION Slides are reviewed. GROSS DESCRIPTION Received in fixative is one container labeled with the patient's name and designated Duodenum biopsy. The specimen consists of multiple irregular fragments of light ruffin soft tissue that in aggregate measure 0.6 x 0.5 x 0.1 cm. The specimen is totally submitted in one cassette. MS/ 08/21/2024 TC:3 CPT:06537
--- NOTE | 2024-08-20 15:08 | PCM.POST.ANE ---
Anesthesia: Postop Eval I Current Vital Signs Temperature: 96.8 F Pulse Rate: 88 Blood Pressure: 94/68 Respiratory Rate: 18 Pulse Ox: 98 Oxygen Delivery Method: Room Air Assessment Airway patent: Yes Spontaneous unlabored respirations: Yes Mental status: Awake and Calm nausea: No Vomiting: No Anesthesia Complication: No Fluid Hydration Crystalloid volume administer (ml): 10 Total IV fluid infused: 10 Progress Note Anesthesia document: Postop Eval 1 completed: Yes
--- NOTE | 2024-08-20 15:13 | OP.EGD_ITS ---
Patient Name: Melita Jefferson Procedure Date: 08/20/2024 2:36 PM Date of : 1985 Age: 38 Procedure: Upper GI endoscopy Indications: Epigastric abdominal pain Providers: Joseph Mueller DO Referring MD: Naun Mcdonald Medicines: Monitored Anesthesia Care Patient Profile: This is a 38 year old female. Refer to note in patient chart for documentation of history and physical. Patient has symptoms of chronic abdominal cramping, chronic abdominal distention and acute epigastric abdominal pain. Complications: No immediate complications. Procedure: Pre-Anesthesia Assessment: - Prior to the procedure, a History and Physical was performed, and patient medications and allergies were reviewed. The patient is competent. The risks and benefits of the procedure and the sedation options and risks were discussed with the patient. All questions were answered and informed consent was obtained. Patient identification and proposed procedure were verified by the physician in the pre-procedure area. Mental Status Examination: normal. Airway Examination: normal oropharyngeal airway and neck mobility. Respiratory Examination: clear to auscultation. CV Examination: normal. Prophylactic Antibiotics: The patient does not require prophylactic antibiotics. Prior Anticoagulants: The patient has taken no anticoagulant or antiplatelet agents except for NSAID medication. ASA Grade Assessment: II - A patient with mild systemic disease. After reviewing the risks and benefits, the patient was deemed in satisfactory condition to undergo the procedure. The anesthesia plan was to use monitored anesthesia care (MAC). Immediately prior to administration of medications, the patient was re-assessed for adequacy to receive sedatives. The heart rate, respiratory rate, oxygen saturations, blood pressure, adequacy of pulmonary ventilation, and response to care were monitored throughout the procedure. The physical status of the patient was re-assessed after the procedure. After obtaining informed consent, the endoscope was passed under direct vision. Throughout the procedure, the patient's blood pressure, pulse, and oxygen saturations were monitored continuously. The Endoscope was introduced through the mouth, and advanced to the second part of duodenum. The upper GI endoscopy was accomplished without difficulty. The patient tolerated the procedure well. Scope In: 2:58:06 PM Scope Out: 3:00:57 PM Total Procedure Duration Time 0 hours 2 minutes 51 seconds Findings: Non-severe esophagitis with no bleeding was found 39 to 41 cm from the incisors. A small hiatal hernia was present. Suspect gastroparesis due to absence of peristalsis, patient symptoms and retained gastric contents. Patchy mildly erythematous mucosa without active bleeding and with no stigmata of bleeding was found in the duodenal bulb. Biopsies were taken with a cold forceps for histology. Verification of patient identification for the specimen was done. Estimated blood loss was minimal. Impression: - Non-severe reflux esophagitis with no bleeding. - Small hiatal hernia. - Gastroparesis. - Erythematous duodenopathy. Biopsied. Recommendation: - Discharge patient to home. - Resume previous diet. - Continue present medications. - Await pathology results. - Information given on bile reflux gastritis Procedure Code(s): --- Professional --- 50895, Esophagogastroduodenoscopy, flexible, transoral; with biopsy, single or multiple CPT copyright 2021 [employer]. All rights reserved. The codes documented in this report are preliminary and upon entry examiner review may be revised to meet current compliance requirements. Joseph Mueller DO 08/20/2024 3:12:18 PM This report has been signed electronically. Number of Addenda: 0 Note Initiated On: 08/20/2024 2:36 PM
--- NOTE | 2024-08-20 15:13 | OP.CCLET_ITS ---
08/20/2024 Naun Mcdonald [address] [id number] Re : Upper GI endoscopy procedure for Melitaabraham Jefferson Dear Dr. Mcdonald This procedure was performed on Tuesday, August 20, 2024. My impressions and recommendations are as follows: Impressions : - Non-severe reflux esophagitis with no bleeding. - Small hiatal hernia. - Gastroparesis. - Erythematous duodenopathy. Biopsied. Recommendations : - Discharge patient to home. - Resume previous diet. - Continue present medications. - Await pathology results. - Information given on bile reflux gastritis My findings are described in the full procedure note, which is enclosed. If I can be of further assistance, please feel free to contact me at . Sincerely, Joseph Mueller, 08/20/2024 3:12:18 PM This report has been signed electronically.
--- NOTE | 2024-08-20 15:14 | POSTOPAN2_ITS ---
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.AISLINNLI Spontaneous unlabored Yes 08/20/24 15:09 HYDROPULPER OPERATOR.RADHA respirations Mental status Awake,Calm 08/20/24 15:09 HYDROPULPER OPERATOR.AISLINNLI nausea No 08/20/24 15:09 HYDROPULPER OPERATOR.RADHA Vomiting No 08/20/24 15:09 HYDROPULPER OPERATOR.RADHA Anesthesia Postop Eval I: Fluid Summary Crystalloid volume administer 10 08/20/24 15:09 HYDROPULPER OPERATOR.AISLINNLI (ml) Colloids volume administered ( ml) Blood Product volume administered (ml) Total IV fluid infused 10 08/20/24 15:09 HYDROPULPER OPERATOR.RADHA Anesthesia Postop Eval I: Summary Notes Anesthesia Complication No 08/20/24 15:09 HYDROPULPER OPERATOR.RADHA Anesthesia Complication Comment: Post-operative progress note Anesthesia: Postop Eval II Evaluation Mental status: Awake Pain Level: 0 nausea: No Vomiting: No
--- NOTE | 2024-08-20 15:14 | PCM.POSTANE2 ---
Anesthesia Postop Eval I Sum Postop Eval Completion status Anesthesia document: Postop Eval 1 completed: Yes Anesthesia Postop Eval I Summary Anesthesia Postop Eval I Summary: Anesthesia Postop Eval I: Assessment Summary Airway patent Yes 08/20/24 15:09 DRAFTER CHIEF DESIGN.AISLINNLI Spontaneous unlabored Yes 08/20/24 15:09 DRAFTER CHIEF DESIGN.RADHA respirations Mental status Awake,Calm 08/20/24 15:09 DRAFTER CHIEF DESIGN.AISLINNLI nausea No 08/20/24 15:09 DRAFTER CHIEF DESIGN.RADHA Vomiting No 08/20/24 15:09 DRAFTER CHIEF DESIGN.RADHA Anesthesia Postop Eval I: Fluid Summary Crystalloid volume administer 10 08/20/24 15:09 DRAFTER CHIEF DESIGN.AISLINNLI (ml) Colloids volume administered ( ml) Blood Product volume administered (ml) Total IV fluid infused 10 08/20/24 15:09 DRAFTER CHIEF DESIGN.RADHA Anesthesia Postop Eval I: Summary Notes Anesthesia Complication No 08/20/24 15:09 DRAFTER CHIEF DESIGN.RADHA Anesthesia Complication Comment: Post-operative progress note Anesthesia: Postop Eval II Evaluation Mental status: Awake Pain Level: 0 nausea: No Vomiting: No
== END 2024-08-20 15:57 | disposition home or self-care (01) ==
LOC: EN 13:55 → AC 13:57
PROVIDERS: Anesthesiology; PCP Internal Medicine Infectious Disease; Referring Provider Internal Medicine Infectious Disease; Visit Provider Internal Medicine Gastroenterology
PROC: 0DJ08ZZ Inspection of Upper Intestinal Tract, Via Natural or Artificial Opening Endoscopic (ICD-10-PCS; CPT 43235; principal; 2024-08-20 14:55)
DX: K21.00 Gastro-esophageal reflux disease with esophagitis, without bleeding (principal); K44.9 Diaphragmatic hernia without obstruction or gangrene; K31.84 Gastroparesis; I10 Essential (primary) hypertension; Z79.51 Long term (current) use of inhaled steroids; Z79.899 Other long term (current) drug therapy; Z86.16 Personal history of COVID-19
CPT/HCPCS: 43239; 81025; 88305; A4216